=== PATIENT | female | born 1990 | race Two or more races ===

== ENCOUNTER 2024-02-04 21:09 | Inpatient (IN) | payer OTHER ==
[~2024-02-04] VITALS: Ht 170.2 cm; Wt 134.7 kg
[2024-02-04 22:01] LABS: Basophils # (auto) 0 10 ^3/uL (0-0.2); Eosinophils # (auto) 0.1 10 ^3/uL (0-0.8); Monocytes % (auto) 7.8 % (0.0-12.0); Nucleated Red Blood Cells % 0.1 %; White Blood Cell 12.7 10^3/uL (4.4-10.8)
[2024-02-04 22:03] LABS: Basophils % (auto) 0.2 % (0.0-2.0); Eosinophils % (auto) 0.5 % (0.0-7.0); Hematocrit 34.7 % (36.0-46.0); Hemoglobin 11.5 g/dL (12.2-16.2); Lymphocytes # (auto) 0.9 10 ^3/uL (0.4-5.4); Lymphocytes % (auto) 7.3 % (10.0-50.0); Mean Corpuscular Hemoglobin 25.9 pg (28.0-32.0); Mean Corpuscular Volume 78.6 fL (80.0-100.0); Neutrophils # (auto) 10.7 10 ^3/uL (1.6-8.6); Neutrophils % (auto) 84.2 % (37.0-80.0); Platelet Count (auto) 310 10^3/uL (140-450); Red Blood Cells 4.42 10^6/uL (4.0-5.20); Red Cell Distribution Width 14.1 % (11.8-14.3)
--- NOTE | 2024-02-04 22:03 | ED.PDOC ---
GI ASSESSMENT HPI Comments pt is diabetic. for the last few days, with nausea, vomiting, diarrhea, and lower abdominal pain. she also has not taken her diabetic medications or checked her BS Time Seen by MD: 21:52 Reviewed Notes: Nurses Notes, Making Machine Operator Notes, Medications, Allergies Allergies: Coded Allergies: NO KNOWN ALLERGIES (Unverified , 02/04/24) Information Source: Patient, Emergency Med Personnel Mode of Arrival: EMS Timing: Days Duration: Since onset Quality: Cramping Vomitus: Bilious Stool: Loose, Black Severity: Moderate Recent: None Recent Hx of: Diabetes Pain Location: Suprapubic Modifying Factors: Nothing Associated sign and symptoms: Nausea, Vomiting, Diarrhea, Abdominal Pain Past Medical History PAST MEDICAL HISTORY: DM Surgical History: Denies all surgeries MANAGER OF [employer] History: No 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[employer] History Family History Family History: Reviewed,noncontributory to illness, No family hx of Cancer, No family hx of DM, No family hx of Heart dayne, No family hx of HTN, No family hx ofKidney dayne, No family hx of Liver dayne, No family hx of Lung dayne, No family hx of Stroke Social History Smoker: Non-Smoker Alcohol: Denies ETOH Use Drugs: Denies Drug Use Constitutional: denies: chills, diaphoresis, fatigue, fever, malaise, sweats, weakness, others EENTM: denies: blurred vision, double vision, ear bleeding, ear discharge, ear drainage, ear pain, ear ringing, eye pain, eye redness, hearing loss, mouth pain, mouth swelling, nasal discharge, nose bleeding, nose congestion, nose pain, photophobia, tearing, throat pain, throat swelling, voice changes, others Respiratory: denies: cough, hemoptysis, orthopnea, SOB at rest, shortness of breath, SOB with excertion, stridor, wheezing, others Cardiovascular: denies: chest pain, dizzy spells, diaphoresis, Dyspnea on ex ertion, edema, irregular heart beat, left arm pain, lightheadedness, palpitations, PND, syncope, others Gastrointestinal: reports: abdominal pain (suprapubic); denies: abdomen distended, blood streaked bowels, constipated, diarrhea, dysphagia, difficulty swallowing, hematemesis, melena, nausea, poor appetite, poor fluid intake, rectal bleeding, rectal pain, vomiting, others Genitourinary: denies: abnormal vagina bleeding, burning, dyspareunia, dysuria, flank pain, frequency, hematuria, incontinence, pain, , vagina discharge, urgency, others Neurological: denies: dizziness, fainting, headache, left sided numbness, left sided weakness, numbness, paresthesia, pre-existing deficit, right sided numbness, right sided weakness, seizure, speech problems, tingling, tremors, weakness, others Musculoskeletal: denies: back pain, gout, joint pain, joint swelling, muscle pain, muscle stiffness, neck pain, others Integumetry: denies: bruises, change in color, change in hair/nails, dryness, laceration, lesions, lumps, rash, wounds, others Allergic/Immunocompromised: denies: Difficulty Healing, Frequent Infections, Hives, Itching, others Hematologic/Lymphatic: denies: anemia, blood clots, easy bleeding, easy bruising, swollen glands, others Endocrine: denies: excessive hunger, excessive sweating, excessive thirst, excessive urination, flushing, intolerance to cold, intolerance to heat, unexplained weight gain, unexplained weight loss, others Psychiatric: denies: anxiety, bipolar disorder, depression, hopeless, panic disorder, schizophrenia, sleepless, suicidal, others All Other Systems: Reviewed and Negative Physical Exam General Appearance: No Apparent Distress, Normal HEENT: Normal ENT Inspection, Pharynx Normal, TMs Normal Neck: Full Range of Motion, Non-Tender, Normal, Normal Inspection Respiratory: Chest Non-Tender, Lungs Clear, No Accessory Muscle Use, No Respiratory Distress, Normal Breath Sounds Cardiovascular: No Edema, No JVD, No Murmur, No Gallop, Normal Peripheral Pulses, Regular Rate/Rhythm Breast Exam: Deferred Gastrointestinal: No Organomegaly, No Pulsatile Mass, Normal Bowel Sounds, Soft, Tenderness, Other (guaiac positive of mildly red stool. no active bleed) Genitalia: Deferred Pelvic: Deferred Rectal: Deferred Extremities: No calf tenderness, Normal capillary refill, Normal inspection, Normal range of motion, Non-tender, No pedal edema Musculoskeletal : Apperance: Normal Neurologic: Alert, refuse laborer II-XII nml as Tested, No Motor Deficits, Normal Affect, Normal Mood, No Sensory Deficits Cerebellar Function: Normal Reflexes: Normal Skin: Dry, Normal Color, Rash (pt has petechial reash on the buttock and inner thighs), Warm Lymphatic: No Adenopathy Was a procedure done? Was a procedure done?: No GI differential Dx Differential Diagnosis: Appendicitis, Complete , Incomplete , Inevitable , Missed , Threatened , Abruptio placentae, Aortic dissection, Bowel Obstruction, Cholangitis, Cholecystitis, Constipation, Diverticular disease, Dysmenorrhea, Ectopic , Esophageal rupture, Gastritis/PUD, Gastroenteritis, GI hemorrhage, Hernia, Hepatitis, Inflammatory BD, Ischemic Bowel, Pancreatitis, PID, Urinary Obstruction, UTI, Urolithiasis, Dehydration, Diabetes/ DKA, Electrolyte Imbalance, Food Poisoning, , Bacterial, Parasitic, Viral, Hypovolemia, Impaction, Malnutrition, Renal Failure, Ischemic Bowel, Mass, Anemia, Esophageal Varicies, Stress Ulcer X-Ray, Labs, Meds, VS Vital Signs Date Time Temp Pulse Resp B/P (MAP) Pulse Ox O2 Delivery O2 Flow Rate FiO2 02/05/24 01:00 113 29 105/42 (63) 95 02/05/24 00:05 136/70 02/04/24 23:10 98.7 113 29 132/56 (81) 94 98.7 02/04/24 23:10 113 29 94 Room Air* 0 21 02/04/24 21:19 118 02/04/24 21:15 98.6 115 20 146/74 (98) 97 Lab Test 02/05/24 01:48 02/05/24 01:40 02/05/24 01:29 02/05/24 00:09 Range/Units Prothrombin Time 11.6 9.3-11.8 sec Prothrombin Time INR 1.10 0.9-1.15 Activated Partial Thromboplast Time 27.1 24.5-34.5 SEC Sodium Level 124 L 136-145 mmol/L Potassium Level 3.5 3.5-5.1 mmol/L Chloride Level 93 L 98-107 mmol/L Carbon Dioxide Level 24 20-31 mmol/L Anion Gap 7 5-15 Blood Urea Nitrogen 66 H 9-23 mg/dL Creatinine 2.63 H 0.550-1.02 mg/dL Glomerular Filtration Rate Calc 24 >90 mL/min BUN/Creatinine Ratio 25.1 H 10.0-20.0 Serum Glucose 449 *H 74-106 mg/dL Calcium Level 7.8 L 8.7-10.4 mg/dL POC Glucose 417 *H 449 *H 70-106 mg/dl Urine Color Light-orange Yellow Urine Clarity Ex.turbid Clear Urine pH 5.5 5.0-9.0 Urine Specific [place] 1.014 1.001-1.035 Urine Protein 2+ H Negative Urine Ketones Negative Negative Urine Blood 3+ H Negative /uL Urine Nitrite Negative Negative Urine Bilirubin Negative Negative Urine Urobilinogen Normal Negative mg/dL Urine Leukocyte Esterase 3+ Negative /uL Urine RBC 37 0 - 4 /hpf Urine WBC 400 0 - 5 /hpf Urine WBC Clumps Present None Seen /hpf Urine Squamous Epithelial Cells Few <5 /hpf Urine Bacteria Many H None Seen /hpf Urine Mucus Few None Seen Urine Glucose 2+ H Normal mg/dL Test 02/04/24 22:00 02/04/24 21:18 Range/Units Blood Gas Specimen Type Arterial Blood Gas Sample Site Left radial Blood Gas Patient Temperature 37.0 Arterial Blood Date Drawn [id number] Arterial Blood pH 7.462 H 7.350-7.450 Arterial Blood Partial Pressure CO2 36.2 32.0-45.0 mmHg Arterial Blood Partial Pressure O2 72.5 L 83.0-108.0 mmHg Arterial Blood HCO3 25.3 21.0-28.0 mmol/L Arterial Blood Oxygen Saturation 94.8 94.0-98.0 % Arterial Blood Base Excess 1.7 -2.0-3.0 mmol/L Arterial Blood Oxyhemoglobin 93.2 L 94.0-98.0 % Arterial Blood Carboxyhemoglobin 1.1 0.5-1.5 % Arterial Blood Methemoglobin 0.6 0.0-1.5 % Lakhwinder Test Yes Blood Gas Total Hemoglobin 12.70 12.0-16.0 g/dL Blood Gas Liter Flow 0.00 Blood Gas Modality Room air Blood Gas Spontaneous Rate 18 FiO2 % 21.0 Specimen Drawn By [facility] rt White Blood Count 12.7 H 4.4-10.8 10^3/uL Red Blood Count 4.42 4.0-5.20 10^6/uL Hemoglobin 11.5 L 12.2-16.2 g/dL Hematocrit 34.7 L 36.0-46.0 % Mean Corpuscular Volume 78.6 L 80.0-100.0 fL Mean Corpuscular Hemoglobin 25.9 L 28.0-32.0 pg Mean Corpuscular Hemoglobin Concent 33.0 32.0-36.0 g/dL Red Cell Distribution Width 14.1 11.8-14.3 % Platelet Count 310 140-450 10^3/uL Mean Platelet Volume 9.2 6.9-10.8 fL Neutrophils (%) (Auto) 84.2 H 37.0-80.0 % Lymphocytes (%) (Auto) 7.3 L 10.0-50.0 % Monocytes (%) (Auto) 7.8 0.0-12.0 % Eosinophils (%) (Auto) 0.5 0.0-7.0 % Basophils (%) (Auto) 0.2 0.0-2.0 % Neutrophils # (Auto) 10.7 H 1.6-8.6 10 ^3/uL Lymphocytes # (Auto) 0.9 0.4-5.4 10 ^3/uL Monocytes # (Auto) 1.0 0-1.3 10 ^3/uL Eosinophils # (Auto) 0.1 0-0.8 10 ^3/uL Basophils # (Auto) 0 0-0.2 10 ^3/uL Nucleated Red Blood Cells 0.1 % Sodium Level 122 L 136-145 mmol/L Potassium Level 3.3 L 3.5-5.1 mmol/L Chloride Level 90 L 98-107 mmol/L Carbon Dioxide Level 25 20-31 mmol/L Anion Gap 7 5-15 Blood Urea Nitrogen 65 H 9-23 mg/dL Creatinine 2.73 H 0.550-1.02 mg/dL Glomerular Filtration Rate Calc 23 >90 mL/min BUN/Creatinine Ratio 23.8 H 10.0-20.0 Serum Glucose 520 *H 74-106 mg/dL Calcium Level 8.0 L 8.7-10.4 mg/dL Total Bilirubin 0.7 0.2-1.0 mg/dL Aspartate Amino Transferase (AST) 9 L 13-40 U/L Alanine Aminotransferase (ALT) 10 7-40 U/L Alkaline Phosphatase 68 46-116 U/L Total Protein 7.4 5.7-8.2 g/dL Albumin 3.5 3.2-4.8 g/dL Lipase 100 H 12-53 U/L Beta HCG, Quantitative 0.2 L 1.5-4.2 mIU/mL Current Medications Medications (Trade) Dose Ordered Sig/Nely Route Start Time Stop Time Status Last Admin Ondansetron HCl (Zofran) 4 mg ONCE ONCE IV 02/04/24 22:00 02/04/24 22:01 DC 02/05/24 00:05 Fentanyl Citrate 25 mcg ONCE ONCE IV 02/04/24 22:00 02/04/24 22:01 DC 02/05/24 00:05 Sodium Chloride 1,000 ml @ 1,000 mls/hr Q1H ONCE IV 02/04/24 22:00 02/04/24 22:59 DC 02/05/24 00:04 Insulin Human Regular (InsuLIN R) 6 units ONCE ONCE IV 02/04/24 23:30 02/04/24 23:31 DC 02/05/24 00:12 Insulin Human Regular (InsuLIN R) 10 units ONCE ONCE IV 02/05/24 01:45 02/05/24 01:46 DC 02/05/24 01:53 Sodium Chloride 1,000 ml @ 125 mls/hr Q8H ONCE IV 02/05/24 01:45 02/05/24 09:44 02/05/24 01:53 Pantoprazole Sodium (Protonix) 40 mg ONCE ONCE IV 02/05/24 02:00 02/05/24 02:01 DC 02/05/24 02:05 Time of 1ST Reevaluation: 23:51 Reevaluation 1ST: Improved Time of 2ND Reevaluation: 00:45 Reevaluation 2ND: Improved Time of 3RD Reevaluation: 01:41 Reevaluation 3RD: Improved Patient Education/Counseling: Diagnosis, Treatment, Prognosis, Need For Follow Up Family Education/Counseling: No Family Present Additional Information pt is diabetic with 2 days of nausea, vomiting, diarrhea, however, she is not in DKA. she has poorly controlled hyperglycemic state and is dehydrated, with renal failure. pt also has evidence of uti, possibly with ascending progression by ct. she has enterocolitis causing the gi bleed, she also has evidence of cirrhosis, which may explain the petechial rash, and incidental finding of cholelithiasis. pt will be admitted for further treatments Departure 1 Departure Time of Disposition: 02:44 Impression: Primary Impression: GIB (gastrointestinal bleeding) Qualified Codes: K92.2 - Gastrointestinal hemorrhage, unspecified Additional Impressions: Renal failure Qualified Codes: N19 - Unspecified kidney failure Abdominal pain Qualified Codes: R10.30 - Lower abdominal pain, unspecified Petechial rash Pseudohyponatremia Hyperglycemia due to diabetes mellitus Dehydration Enterocolitis UTI (urinary tract infection) Qualified Codes: N39.0 - Urinary tract infection, site not specified; R31.9 - Hematuria, unspecified Cholelithiasis Qualified Codes: K80.20 - Calculus of gallbladder without cholecystitis without obstruction Cirrhosis Qualified Codes: K74.60 - Unspecified cirrhosis of liver Disposition: ADMITTED INPATIENT Admit to: Tele Condition: Serious Discharged With: Self Critical Care Note Critical Care Time?: Yes (>90min-critical care time only) Critical care comment: due to the possibility of DKA and deterioration of pt's condition, her care required my highest level of attention. i assessed her and formulated a care plan, communicated with medical personnel, and reviewed her results, reassessed her and provided updates. total time excludes any procedures Stability Stability form required: JOE Perera MD Feb 04, 2024 22:03
[2024-02-04 22:06] LABS: Base Excess 1.7 mmol/L (-2.0-3.0)
[2024-02-04 22:25] LABS: Alanine Aminotransferase 10 U/L (7-40); Albumin 3.5 g/dL (3.2-4.8); Alkaline Phosphatase 68 U/L (46-116); Anion Gap 7 (5-15); Aspartate Aminotransferase 9 U/L (13-40); BUN/Creatinine Ratio 23.8 (10.0-20.0); Bilirubin, Total 0.7 mg/dL (0.2-1.0); Blood Urea Nitrogen 65 mg/dL (9-23); Carbon Dioxide 25 mmol/L (20-31); Chloride 90 mmol/L (98-107); Lipase 100 U/L (12-53); Potassium 3.3 mmol/L (3.5-5.1); Sodium 122 mmol/L (136-145); Total Protein 7.4 g/dL (5.7-8.2)
[2024-02-04 22:32] LABS: Glucose 520 mg/dL (74-106)
[2024-02-04 23:10] VITALS: PULSE 113; RESP 29; O2SAT 94
--- NOTE | 2024-02-04 23:43 | ECG ---
[facility] Test Date: 2024-02-04 Test Time: 21:19:02 Pat Name: MOOSE PRIDE Department: ER Room: 0273T Gender: F Ampoule Inspector: PALOMO : 1990 Requested By: JOE MARIA Order Number: [id number] Reading MD: Jase Mercado Measurements Intervals [place] Rate: 118 P: 29 OK: 129 QRS: 22 QRSD: 94 T: 29 QT: 358 QTc: 502 Interpretive Statements Sinus tachycardia Left atrial enlargement Prolonged QT interval Electronically Signed On 02-09-2024 14:24:41 PDT by Jase Mercado Please click the below link to view image of tracing.
[2024-02-05] MEDS: SODIUM CHLORIDE 0.9% 1,000 ML IV ONE ×2 (00:04→01:53)
[2024-02-05] MEDS: ONDANSETRON HCL 4 MG/2 ML VIAL IV ONE (00:05)
[2024-02-05] MEDS: fentaNYL CITRATE 100 MCG/2 ML VL IV ONE (00:05)
[2024-02-05] MEDS: InsuLIN REG 1unit/0.01ml Soln (100units/ml) IV ONE ×2 (00:12→01:53)
[2024-02-05] MEDS: PANTOPRAZOLE 40 MG/10 ML VIAL INJ IV ONE (02:05)
[2024-02-05 02:14] LABS: Urine Bacteria MANY /hpf (None Seen); Urine Blood 3+ /uL (Negative); Urine Clarity Ex.Turbid (Clear); Urine Color Light-Orange (Yellow); Urine Mucus FEW (None Seen); Urine Protein, UAD 2+ (Negative); Urine Specific Gravity 1.014 (1.001-1.035); Urine Urobilinogen Normal (Negative); Urine WBC 400 /hpf (0 - 5); Urine WBC Clumps PRESENT /hpf (None Seen); Urine pH 5.5 (5.0-9.0)
[2024-02-05 02:14] LABS: Chloride 93 mmol/L (98-107); Potassium 3.5 mmol/L (3.5-5.1); Sodium 124 mmol/L (136-145)
[2024-02-05 02:15] LABS: Anion Gap 7 (5-15); Calcium 7.8 mg/dL (8.7-10.4); Carbon Dioxide 24 mmol/L (20-31)
[2024-02-05 02:20] LABS: BUN/Creatinine Ratio 25.1 (10.0-20.0); Blood Urea Nitrogen 66 mg/dL (9-23)
[2024-02-05 02:23] LABS: INR 1.1 (0.9-1.15); Partial Thromboplastin Time 27.1 SEC (24.5-34.5); Prothrombin Time 11.6 sec (9.3-11.8)
[2024-02-05 02:26] LABS: Glucose 449 mg/dL (74-106)
--- NOTE | 2024-02-05 02:32 | DVH ---
CLINICAL HISTORY: lower abdominal pain TECHNIQUE: CT of the abdomen and pelvis was performed without intravenous contrast. This exam was per formed according to our departmental dose optimization program. Up-to-date CT equipment and radiation dose reduction techniques are utilized as appropriate. [[employer] Exposure Report] WID: COMPARISON: None FINDINGS: Lower Thorax: Normal-sized heart. Lung bases are clear. Mild mitral annular calcifications. Trace pericardial fluid. Liver and Biliary system: There is mild hepatomegaly measuring 22 cm craniocaudal. There is nodular c ontour of the liver. No definite hepatic lesion. There is cholelithiasis. No biliary ductal dilatatio n. Spleen: Splenomegaly, mild. Adrenal Glands and Kidneys: Normal adrenal glands. There is mild to moderate right hydroureteronephro sis with right urothelial thickening. The right ureter tapers distally. No obstructing calculus is se en. No left hydronephrosis. No nephrolithiasis. Pancreas and Retroperitoneum: Normal pancreas. Mildly prominent right retroperitoneal lymph nodes pr obably reactive. Aorta and Major Vessels: Aortoiliac vessels are normal in caliber. Trace calcified plaque in the pro ximal femoral vessels. Bowel, Mesentery and Peritoneal space: Normal caliber small and large bowel. There circumferential wa ll thickening throughout the colon. Normal appendix. There is scattered wall thickening throughout s mall bowel loops. There is mild ascites. There is no free intraperitoneal air or drainable abscess. Pelvis: Circumferential bladder wall thickening. There are cystic lesions in the bilateral adnexa rj suring up to 4.4 cm on the right and 2.6 cm on the left on series 2, image 82. Mildly prominent pelvi c lymph nodes. Abdominal wall and Osseous Structures: There is mild body wall edema. No destructive osseous lesion. Grade 1 anterolisthesis at L5-S1 with bilateral L5 spondylolysis. Multilevel lower thoracic and lumba r spondylosis. IMPRESSION: 1. Diffuse wall thickening of the large bowel and scattered small bowel which could reflect infectiou s or inflammatory enterocolitis. 2. Circumferential wall thickening of the urinary bladder nonspecific though may reflect cystitis. C orrelate with urinalysis 3. [id number] right hydroureteronephrosis which tapers distally with mild right urothelial thic kening which could be related to ascending infection. This could also be evaluated with a urinalysis . 4. Hepatosplenomegaly. 5. Nodular contour of the liver which may be fibrosis or cirrhosis. Correlate with liver enzymes and clinical history. 6. Cholelithiasis.
[2024-02-05] MEDS: cefTRIAXone 1GM/50ML D5W 50 ML IV ONE (02:58)
[2024-02-05] MEDS: metroNIDAZOLE 500MG/100ML 100 ML IV ONE (03:12)
[2024-02-05] MEDS: SODIUM CHLORIDE 0.9% 1,000 ML IV SCH ×2 (05:30→19:04)
[2024-02-05] MEDS ORDERED: DEXTROSE (50%) 50ML SYRG IV PRN (05:30)
[2024-02-05] MEDS ORDERED: DOCUSATE SOD 100 MG CAP PO PRN (05:30)
--- NOTE | 2024-02-05 06:19 | DVHHP2 ---
History of Present Illness Reason for Visit: Acute abdominal pain History of Present Illness The patient is a 33-year-old female with past medical history of diabetes mellitus who presented to [facility] ED with complaint of abdominal pain. Patient reports symptoms progressively get worse with severe lower abdomin al pain, associated diarrhea, nausea, vomiting, getting worse that prompted this visit. Patient was seen and evaluated in the ED, laboratory data shows WBC 12.7, hemoglobin 11.5, hematocrit 34.7, platelets 310, sodium 124, potassium 3.5, BUN 66, creatinine 2.63, glucose 449, calcium 7.8, AST nine, ALT 10, lipase 100, blood pressure 132/56, heart rate 63, temperature 98.9 F, O2 saturation 95% on room air. Urinalysis positive for urinary tract infection. Abdomen/pelvis CT revealing diffuse wall thickening of the large bowel and scattered small bowel which could reflect infectious or inflammatory enterocolitis, hepatomegaly. Patient was started on IV antibiotic regimen Flagyl, please see medication orders section in the computer. On my assessment, patient denies chest pain, no headache, no dizziness, no diaphoresis, no shortness of breaths, no abdominal pain at this moment, no diarrhea, no nausea, no vomiting, no fever, no chills. Patient was admitted for further evaluation and medical management. Past Medical History DM Past Surgical History Denies all surgeries Family History Reviewed, noncontributory to the management of this case. Past Social History The patient lives at home, denies smoking, alcohol or illicit drugs abuse. Review of Systems Constitutional: No: Fever, Chills, Sweats, Weakness, Malaise, Other Eyes: No: Pain, Vision change, Conjunctivae inflammation, Eyelid inflammation, Other, Redness ENT: No: Ear pain, Ear discharge, Nose pain, Nose discharge, Nose congestion, Mouth pain, Mouth swelling, Throat pain, Throat swelling, Other Respiratory: No: Cough, Dry, Shortness of breath, SOB with excertion, Wheezing, Hemoptysis, Pleuritic Pain, Sputum, Wheezing, Other Cardiovascular: No: Chest Pain, Palpitations, Orthopnea, Paroxysmal Noc. Dyspnea, Edema, Lt Headedness, Other Gastrointestinal: Abdominal Pain; No: Nausea, Vomiting, Diarrhea, Constipation, Melena, Hematochezia, Other Genitourinary: No Dysuria, No Frequency, No Incontinence, No Hematuria, No Retention, No Other Musculoskeletal: No: other, neck pain, shoulder pain, arm pain, back pain, hand pain, leg pain, foot pain Skin: Other (Petechial rash); No: Rash, Lesions, Jaundice, Bruising Neurological: No: Weakness, Numbness, Incoordination, Change in speech, Confusion, Seizures, Other Allergies: Coded Allergies: NO KNOWN ALLERGIES (Unverified , 02/04/24) Medications Current Medications Medications Dose Ordered Sig/Nely Route Start Time Stop Time Status Last Admin Dose Admin Ceftriaxone Sodium 50 ml @ 100 mls/hr DAILY@09 IV 02/06/24 09:00 Metronidazole 100 ml @ 100 mls/hr Q8HR IV 02/05/24 14:00 Pantoprazole Sodium 40 mg DAILY IV 02/05/24 10:00 Diagnostic Test (Pha) 1 strip IQ4HR 02/05/24 08:00 Insulin Human Regular IQ4HR SC 02/05/24 08:00 Dextrose 50 ml UD PRN IV 02/05/24 05:30 Sodium Chloride 1,000 ml @ 120 mls/hr Q8H20M IV 02/05/24 05:30 02/05/24 05:30 120 MLS/HR Acetaminophen/ Hydrocodone Bitart 1 tab Q4HP PRN PO 02/05/24 05:30 Ondansetron HCl 4 mg Q4HP PRN IV 02/05/24 05:30 Docusate Sodium 100 mg BIDPRN PRN PO 02/05/24 05:30 Acetaminophen 650 mg Q6HP PRN PO 02/05/24 05:30 Morphine Sulfate 2 mg Q4HPRN PRN IV 02/05/24 05:30 Exam Vital Signs Vital Signs Date Time Temp Pulse Resp B/P (MAP) Pulse Ox O2 Delivery O2 Flow Rate FiO2 02/05/24 05:00 110 24 136/61 (86) 97 02/04/24 23:10 98.7 98.7 02/04/24 23:10 Room Air* 0 21 General Appearance: Alert, Oriented X3, Cooperative, No acute distress HEENT: Atraumatic, PERRLA, EOMI, Mucous membr. moist/pink Respiratory: Clear to auscultation, Normal air movement Cardiovascular: Regular rate, Normal S1, Normal S2, No murmurs Abdominal: Normal bowel sounds, Soft, No tenderness, No hepatospenomegaly, No masses Extremities: No clubbing, No cyanosis, No edema, Normal pulses, No tenderness/swelling Skin: No rashes, No breakdown, No significant lesion Neuro: Normal speech, Normal tone, Sensation intact, Cranial nerves 3-12 NL, Reflexes 2+, Other (Generalized weakness) Psych/Mental Status: Mental status NL, Mood NL Labs/Xrays Labs Test 02/05/24 05:56 02/05/24 03:39 02/05/24 01:48 02/05/24 01:29 Range/Units POC Glucose 365 H 70-106 mg/dl Prothrombin Time 11.6 9.3-11.8 sec Prothrombin Time INR 1.10 0.9-1.15 Activated Partial Thromboplast Time 27.1 24.5-34.5 SEC Urine Color Light-orange Yellow Urine Clarity Ex.turbid Clear Urine pH 5.5 5.0-9.0 Urine Specific [place] 1.014 1.001-1.035 Urine Protein 2+ H Negative Urine Ketones Negative Negative Urine Blood 3+ H Negative /uL Urine Nitrite Negative Negative Urine Bilirubin Negative Negative Urine Urobilinogen Normal Negative mg/dL Urine Leukocyte Esterase 3+ Negative /uL Urine RBC 37 0 - 4 /hpf Urine WBC 400 0 - 5 /hpf Urine WBC Clumps Present None Seen /hpf Urine Squamous Epithelial Cells Few <5 /hpf Urine Bacteria Many H None Seen /hpf Urine Mucus Few None Seen Urine Glucose 2+ H Normal mg/dL Test 02/04/24 22:00 02/04/24 21:18 Range/Units Blood Gas Specimen Type Arterial Blood Gas Sample Site Left radial Blood Gas Patient Temperature 37.0 Arterial Blood Date Drawn [id number] Arterial Blood pH 7.462 H 7.350-7.450 Arterial Blood Partial Pressure CO2 36.2 32.0-45.0 mmHg Arterial Blood Partial Pressure O2 72.5 L 83.0-108.0 mmHg Arterial Blood HCO3 25.3 21.0-28.0 mmol/L Arterial Blood Oxygen Saturation 94.8 94.0-98.0 % Arterial Blood Base Excess 1.7 -2.0-3.0 mmol/L Arterial Blood Oxyhemoglobin 93.2 L 94.0-98.0 % Arterial Blood Carboxyhemoglobin 1.1 0.5-1.5 % Arterial Blood Methemoglobin 0.6 0.0-1.5 % Lakhwinder Test Yes Blood Gas Total Hemoglobin 12.70 12.0-16.0 g/dL Blood Gas Liter Flow 0.00 Blood Gas Modality Room air Blood Gas Spontaneous Rate 18 FiO2 % 21.0 Specimen [facility] rt Eosinophils (%) (Auto) 0.5 0.0-7.0 % Eosinophils # (Auto) 0.1 0-0.8 10 ^3/uL Basophils # (Auto) 0 0-0.2 10 ^3/uL Nucleated Red Blood Cells 0.1 % Lipase 100 H 12-53 U/L Beta HCG, Quantitative 0.2 L 1.5-4.2 mIU/mL PATIENT: MOOSE PRIDE ACCT: [id number] UNIT: [id number] : 1990 LOC: ER ROOM / BED: / AGE / SEX: 33 / F ADM STATUS: REG ER SERVICE 51 ORDERING PHYSICIAN: JOE MARIA MD PROCEDURE(s): ABPL - CT AB PEL WO CON-NO ORAL OR IV REASON: lower abdominal pain ORDER NUMBER(s): [id number], ACCESSION NUMBER(s): [id number] CLINICAL HISTORY: lower abdominal pain TECHNIQUE: CT of the abdomen and pelvis was performed without intravenous contrast. This exam was performed according to our departmental dose optimization program. Up-to-date CT equipment and radiation dose reduction techniques are utilized as appropriate. [[employer] Exposure Report] WID: COMPARISON: None FINDINGS: Lower Thorax: Normal-sized heart. Lung bases are clear. Mild mitral annular calcifications. Trace pericardial fluid. Liver and Biliary system: There is mild hepatomegaly measuring 22 cm craniocaudal. There is nodular contour of the liver. No definite hepatic lesion. There is cholelithiasis. No biliary ductal dilatation. Spleen: Splenomegaly, mild. Adrenal Glands and Kidneys: Normal adrenal glands. There is mild to moderate right hydroureteronephrosis with right urothelial thickening. The right ureter tapers distally. No obstructing calculus is seen. No left hydronephrosis. No nephrolithiasis. Pancreas and Retroperitoneum: Normal pancreas. Mildly prominent right retroperitoneal lymph nodes probably reactive. Aorta and Major Vessels: Aortoiliac vessels are normal in caliber. Trace calcified plaque in the proximal femoral vessels. Bowel, Mesentery and Peritoneal space: Normal caliber small and large bowel. There circumferential wall thickening throughout the colon. Normal appendix. There is scattered wall thickening throughout small bowel loops. There is mild ascites. There is no free intraperitoneal air or drainable abscess. Pelvis: Circumferential bladder wall thickening. There are cystic lesions in the bilateral adnexa measuring up to 4.4 cm on the right and 2.6 cm on the left on series 2, image 82. Mildly prominent pelvic lymph nodes. Abdominal wall and Osseous Structures: There is mild body wall edema. No destructive osseous lesion. Grade 1 anterolisthesis at L5-S1 with bilateral L5 spondylolysis. Multilevel lower thoracic and lumbar spondylosis. IMPRESSION: 1. Diffuse wall thickening of the large bowel and scattered small bowel which could reflect infectious or inflammatory enterocolitis. 2. Circumferential wall thickening of the urinary bladder nonspecific though may reflect cystitis. Correlate with urinalysis 3. [id number] right hydroureteronephrosis which tapers distally with mild right urothelial thickening which could be related to ascending infection. This could also be evaluated with a urinalysis. 4. Hepatosplenomegaly. 5. Nodular contour of the liver which may be fibrosis or cirrhosis. Correlate with liver enzymes and clinical history. 6. Cholelithiasis. Assessment/Plan Assessment/Plan GIB (gastrointestinal bleeding) Gastrointestinal hemorrhage, unspecified Unspecified kidney failure Acute abdominal pain Lower abdominal pain, unspecified Petechial rash Pseudohyponatremia Hyperglycemia due to diabetes mellitus Dehydration Leukocytosis, unspecified Enterocolitis UTI (urinary tract infection) Cholelithiasis Calculus of gallbladder without cholecystitis without obstruction Unspecified cirrhosis of liver Plan 1. Admit to telemetry unit 2. Breathing treatment 3. Pain control management 4. IV antibiotic management 5. Management of fluids and electrolytes 6. Consultation for GI/hospitalist 7. Diagnostic test abdomen/pelvis CT 8. DVT prophylaxis-on SCDs 9. Repeat labs CBC, CMP in a.m. 10. Home medication reviewed and reconciled 11. Continue with current medical management 12. Treatment plan discussed with patient and RN. Patient verbalized understanding. Plan discussed with: Patient, Other (RN) My Orders Orders - PILLO AGGARWAL DNP Procedure Category Date Status Time Complete Blood Count LAB 02/05/24 In Process 05:17 Comprehensive LAB 02/05/24 In Process Metabolic Panel 05:17 Metronidazole PHA 02/05/24 In Process 500mg/100ml (Flagyl 14:00 Pantoprazole PHA 02/05/24 In Process (Protonix) 10:00 Glucose Blood PHA 02/05/24 In Process (Accu-Chek Comfort 08:00 Insulin R (Human) PHA 02/05/24 In Process (Insulin R) 08:00 Dextrose 50% Syringe PHA 02/05/24 In Process 05:30 Allergies KALYAN 02/05/24 In Process 05:17 Code Status CODE 02/05/24 Transmitted 05:17 Sodium Chloride 0.9% PHA 02/05/24 In Process 05:30 Oxygen Per Hour RT 02/05/24 Transmitted 05:17 Hydrocodone-Acet PHA 02/05/24 In Process 5/325mg Tab ([place] 05:30 Ondansetron Hcl PHA 02/05/24 In Process (Zofran) 05:30 Docusate Sodium PHA 02/05/24 In Process Capsule (Colace 05:30 Complete Blood Count LAB 02/06/24 Verified 04:00 Comprehensive LAB 02/06/24 Verified Metabolic Panel 04:00 Condition: Serious KALYAN 02/05/24 In Process 05:17 Acetaminophen Tablet PHA 02/05/24 In Process (Tylenol Tablet) 05:30 Clear Liq Diet DIET 02/05/24 Transmitted Breakfast Bedrest With Bathroom KALYAN 02/05/24 In Process Privileg 05:17 Morphine Sulfate PHA 02/05/24 In Process Injection 05:30 Sequential KALYAN 02/05/24 In Process Compression Device Ceftriaxone 1gm/50ml PHA 02/06/24 In Process D5w (Rocephin) 09:00 *[facility] CONS 02/05/24 Transmitted -[place] 05:38 Problem List: (1) Acute abdominal pain (2) Leukocytosis, unspecified (3) Liver cirrhosis (4) Petechial rash (5) Pseudohyponatremia (6) Hyperglycemia due to diabetes mellitus (7) UTI (urinary tract infection) (8) Cholelithiasis (9) Gastrointestinal hemorrhage, unspecified (10) Enterocolitis (11) Lower abdominal pain, unspecified (12) Dehydration (13) Unspecified kidney failure (14) GIB (gastrointestinal bleeding) (15) Calculus of gallbladder without cholecystitis without obstruction (16) Unspecified cirrhosis of liver Date of Service: Feb 05, 2024 Billing Provider: PILLO AGGARWAL DNP Common Visit Codes: [id number] INP/OBS CARE (HIGH) PILLO AGGARWAL DNP Feb 05, 2024 06:19
[2024-02-05 06:22] LABS: Basophils # (auto) 0 10 ^3/uL (0-0.2); Basophils % (auto) 0.3 % (0.0-2.0); Eosinophils # (auto) 0 10 ^3/uL (0-0.8); Eosinophils % (auto) 0.4 % (0.0-7.0); Hematocrit 31.1 % (36.0-46.0); Hemoglobin 10.4 g/dL (12.2-16.2); Lymphocytes # (auto) 0.8 10 ^3/uL (0.4-5.4); Lymphocytes % (auto) 7.2 % (10.0-50.0); Mean Corpuscular Hgb Conc. 33.3 g/dL (32.0-36.0); Mean Corpuscular Volume 78.1 fL (80.0-100.0); Monocytes # (auto) 0.9 10 ^3/uL (0-1.3); Monocytes % (auto) 7.4 % (0.0-12.0); Neutrophils % (auto) 84.7 % (37.0-80.0); Platelet Count (auto) 288 10^3/uL (140-450); Red Blood Cells 3.99 10^6/uL (4.0-5.20); Red Cell Distribution Width 14.2 % (11.8-14.3); White Blood Cell 11.8 10^3/uL (4.4-10.8)
[2024-02-05] MEDS ORDERED: NITROGLYCERIN 0.4 MG SL TAB SL PRN (06:30)
[2024-02-05] MEDS ORDERED: MORPHINE SULFATE INJ 2 MG/ml SYRG IV PRN (06:30)
[2024-02-05 06:35] LABS: Alkaline Phosphatase 58 U/L (46-116); Anion Gap 12 (5-15); Aspartate Aminotransferase < 8 U/L (13-40); BUN/Creatinine Ratio 27.4 (10.0-20.0); Bilirubin, Total 0.6 mg/dL (0.2-1.0); Blood Urea Nitrogen 69 mg/dL (9-23); Calcium 7.6 mg/dL (8.7-10.4); Carbon Dioxide 22 mmol/L (20-31); Chloride 92 mmol/L (98-107); Potassium 3.1 mmol/L (3.5-5.1); Sodium 126 mmol/L (136-145); Total Protein 6.5 g/dL (5.7-8.2)
[2024-02-05 06:42] LABS: Alanine Aminotransferase < 9 U/L (7-40)
[2024-02-05 06:44] LABS: Glucose 450 mg/dL (74-106)
[2024-02-05] MEDS: CALCIUM GLUC 1,000mg/50ml-NS 50 ML IV ONE (06:44)
[2024-02-05] MEDS: ACCU-CHEK COMFORT CURVE STRIP VI SCH (07:00)
[2024-02-05] MEDS: InsuLIN REG 1unit/0.01ml Soln (100units/ml) SC SCH (07:01)
[2024-02-05] MEDS ORDERED: InsuLIN REG 1unit/0.01ml Soln (100units/ml) SC SCH (08:00)
[2024-02-05] MEDS: PANTOPRAZOLE 40 MG/10 ML VIAL INJ IV SCH (10:26)
[2024-02-05] MEDS: metroNIDAZOLE 500MG/100ML 100 ML IV SCH (14:32)
--- NOTE | 2024-02-05 17:05 | DVHINCON2 ---
Date of service: Feb 05, 2024 Referring Physician Hospitalist Reason for Consultation Acute kidney injury History of Present Illness 33-year-old morbidly obese female with a past medical history of diabetes. Patient is a poor historian but presents to the hospital complaining of abdominal pain. Nephrology consulted due to elevated creatinine level. I have no previous labs for comparison. She has imaging showing urinary tract infection as well as mild to moderate hydronephrosis and elevated lipase. Past Medical History dm2 Allergies: Coded Allergies: NO KNOWN ALLERGIES (Unverified , 02/04/24) Current Medications Current Medications Medications (Trade) Dose Ordered Sig/Nely Route PRN Reason Start Time Stop Time Status Last Admin Ceftriaxone Sodium 50 ml @ 100 mls/hr DAILY@09 IV 02/06/24 09:00 Metronidazole 100 ml @ 100 mls/hr Q8HR IV 02/05/24 14:00 02/05/24 14:32 Pantoprazole Sodium (Protonix) 40 mg DAILY IV 02/05/24 10:00 02/05/24 10:26 Diagnostic Test (Pha) (Accu-Chek Comfort Curve T) 1 strip IQ4HR 02/05/24 08:00 02/05/24 16:37 Insulin Human Regular (InsuLIN R) IQ4HR SC 02/05/24 08:00 02/05/24 06:53 DC Dextrose 50 ml UD PRN IV Blood Sugar LESS THAN 60 02/05/24 05:30 Sodium Chloride 1,000 ml @ 120 mls/hr Q8H20M IV 02/05/24 05:30 02/05/24 14:32 Acetaminophen/ Hydrocodone Bitart ([place] 5/325MG Tab) 1 tab Q4HP PRN PO MODERATE PAIN (4-6 PAIN SCALE) 02/05/24 05:30 Ondansetron HCl (Zofran) 4 mg Q4HP PRN IV NAUSEA / VOMITING 02/05/24 05:30 Docusate Sodium (Colace Capsule) 100 mg BIDPRN PRN PO FOR CONSTIPATION 02/05/24 05:30 Acetaminophen (Tylenol Tablet) 650 mg Q6HP PRN PO PAIN SCALE 1-3 OR TEMP>100.4 02/05/24 05:30 Morphine Sulfate 2 mg Q4HPRN PRN IV SEVERE PAIN (7-10 PAIN SCALE) 02/05/24 05:30 Nitroglycerin (Ntrostat Sublingual) 0.4 mg Q5MINP PRN SL FOR CHEST PAIN 02/05/24 06:30 Morphine Sulfate 2 mg Q30M PRN IV FOR CHEST PAIN 02/05/24 06:30 Insulin Human Regular (InsuLIN R) IQ4HR SC 02/05/24 07:00 02/05/24 16:39 Review of Systems abdomen pain H&P Exam Vital Signs/I&O Vital Sign Date Time Temp Pulse Resp B/P (MAP) Pulse Ox O2 Delivery O2 Flow Rate FiO2 02/05/24 16:00 100 22 121/47 (71) 100 02/05/24 08:00 97.8 97.8 02/05/24 07:30 Room Air* 0 21 Intake and Output 02/04/24 02/05/24 19:00 07:00 Intake Total 1695 ml Balance 1695 ml Intake IV Total 1695 ml Physical Exam Flushed appearing obese female Alert poor historian No murmur Abdomen is soft No pitting edema Multiple areas of purple petechiae Labs/Diagnostic Data Labs/Diagnostic Data Laboratory Tests Test 02/05/24 11:52 02/05/24 06:57 02/05/24 05:56 02/05/24 03:39 Range/Units POC Glucose 362 H 433 *H 365 H 70-106 mg/dl White Blood Count 11.8 H 4.4-10.8 10^3/uL Red Blood Count 3.99 L 4.0-5.20 10^6/uL Hemoglobin 10.4 L 12.2-16.2 g/dL Hematocrit 31.1 #L 36.0-46.0 % Mean Corpuscular Volume 78.1 L 80.0-100.0 fL Mean Corpuscular Hemoglobin 26.0 L 28.0-32.0 pg Mean Corpuscular Hemoglobin Concent 33.3 32.0-36.0 g/dL Red Cell Distribution Width 14.2 11.8-14.3 % Platelet Count 288 140-450 10^3/uL Mean Platelet Volume 9.1 6.9-10.8 fL Neutrophils (%) (Auto) 84.7 H 37.0-80.0 % Lymphocytes (%) (Auto) 7.2 L 10.0-50.0 % Monocytes (%) (Auto) 7.4 0.0-12.0 % Eosinophils (%) (Auto) 0.4 0.0-7.0 % Basophils (%) (Auto) 0.3 0.0-2.0 % Neutrophils # (Auto) 10.0 H 1.6-8.6 10 ^3/uL Lymphocytes # (Auto) 0.8 0.4-5.4 10 ^3/uL Monocytes # (Auto) 0.9 0-1.3 10 ^3/uL Eosinophils # (Auto) 0 0-0.8 10 ^3/uL Basophils # (Auto) 0 0-0.2 10 ^3/uL Nucleated Red Blood Cells 0.0 % Sodium Level 126 L 136-145 mmol/L Potassium Level 3.1 L 3.5-5.1 mmol/L Chloride Level 92 L 98-107 mmol/L Carbon Dioxide Level 22 20-31 mmol/L Anion Gap 12 5-15 Blood Urea Nitrogen 69 H 9-23 mg/dL Creatinine 2.52 H 0.550-1.02 mg/dL Glomerular Filtration Rate Calc 25 >90 mL/min BUN/Creatinine Ratio 27.4 H 10.0-20.0 Serum Glucose 450 *H 74-106 mg/dL Calcium Level 7.6 L 8.7-10.4 mg/dL Total Bilirubin 0.6 0.2-1.0 mg/dL Aspartate Amino Transferase (AST) < 8 L 13-40 U/L Alanine Aminotransferase (ALT) < 9 7-40 U/L Alkaline Phosphatase 58 46-116 U/L Total Protein 6.5 5.7-8.2 g/dL Albumin 3.0 L 3.2-4.8 g/dL Test 02/05/24 01:48 02/05/24 01:40 02/05/24 01:29 02/05/24 00:09 Range/Units Prothrombin Time 11.6 9.3-11.8 sec Prothrombin Time INR 1.10 0.9-1.15 Activated Partial Thromboplast Time 27.1 24.5-34.5 SEC Sodium Level 124 L 136-145 mmol/L Potassium Level 3.5 3.5-5.1 mmol/L Chloride Level 93 L 98-107 mmol/L Carbon Dioxide Level 24 20-31 mmol/L Anion Gap 7 5-15 Blood Urea Nitrogen 66 H 9-23 mg/dL Creatinine 2.63 H 0.550-1.02 mg/dL Glomerular Filtration Rate Calc 24 >90 mL/min BUN/Creatinine Ratio 25.1 H 10.0-20.0 Serum Glucose 449 *H 74-106 mg/dL Calcium Level 7.8 L 8.7-10.4 mg/dL POC Glucose 417 *H 449 *H 70-106 mg/dl Urine Color Light-orange Yellow Urine Clarity Ex.turbid Clear Urine pH 5.5 5.0-9.0 Urine Specific [place] 1.014 1.001-1.035 Urine Protein 2+ H Negative Urine Ketones Negative Negative Urine Blood 3+ H Negative /uL Urine Nitrite Negative Negative Urine Bilirubin Negative Negative Urine Urobilinogen Normal Negative mg/dL Urine Leukocyte Esterase 3+ Negative /uL Urine RBC 37 0 - 4 /hpf Urine WBC 400 0 - 5 /hpf Urine WBC Clumps Present None Seen /hpf Urine Squamous Epithelial Cells Few <5 /hpf Urine Bacteria Many H None Seen /hpf Urine Mucus Few None Seen Urine Glucose 2+ H Normal mg/dL Test 02/04/24 22:00 02/04/24 21:18 Range/Units Blood Gas Specimen Type Arterial Blood Gas Sample Site Left radial Blood Gas Patient Temperature 37.0 Arterial Blood Date Drawn [id number] Arterial Blood pH 7.462 H 7.350-7.450 Arterial Blood Partial Pressure CO2 36.2 32.0-45.0 mmHg Arterial Blood Partial Pressure O2 72.5 L 83.0-108.0 mmHg Arterial Blood HCO3 25.3 21.0-28.0 mmol/L Arterial Blood Oxygen Saturation 94.8 94.0-98.0 % Arterial Blood Base Excess 1.7 -2.0-3.0 mmol/L Arterial Blood Oxyhemoglobin 93.2 L 94.0-98.0 % Arterial Blood Carboxyhemoglobin 1.1 0.5-1.5 % Arterial Blood Methemoglobin 0.6 0.0-1.5 % Lakhwinder Test Yes Blood Gas Total Hemoglobin 12.70 12.0-16.0 g/dL Blood Gas Liter Flow 0.00 Blood Gas Modality Room air Blood Gas Spontaneous Rate 18 FiO2 % 21.0 Specimen Drawn By [email or web address] rt White Blood Count 12.7 H 4.4-10.8 10^3/uL Red Blood Count 4.42 4.0-5.20 10^6/uL Hemoglobin 11.5 L 12.2-16.2 g/dL Hematocrit 34.7 L 36.0-46.0 % Mean Corpuscular Volume 78.6 L 80.0-100.0 fL Mean Corpuscular Hemoglobin 25.9 L 28.0-32.0 pg Mean Corpuscular Hemoglobin Concent 33.0 32.0-36.0 g/dL Red Cell Distribution Width 14.1 11.8-14.3 % Platelet Count 310 140-450 10^3/uL Mean Platelet Volume 9.2 6.9-10.8 fL Neutrophils (%) (Auto) 84.2 H 37.0-80.0 % Lymphocytes (%) (Auto) 7.3 L 10.0-50.0 % Monocytes (%) (Auto) 7.8 0.0-12.0 % Eosinophils (%) (Auto) 0.5 0.0-7.0 % Basophils (%) (Auto) 0.2 0.0-2.0 % Neutrophils # (Auto) 10.7 H 1.6-8.6 10 ^3/uL Lymphocytes # (Auto) 0.9 0.4-5.4 10 ^3/uL Monocytes # (Auto) 1.0 0-1.3 10 ^3/uL Eosinophils # (Auto) 0.1 0-0.8 10 ^3/uL Basophils # (Auto) 0 0-0.2 10 ^3/uL Nucleated Red Blood Cells 0.1 % Sodium Level 122 L 136-145 mmol/L Potassium Level 3.3 L 3.5-5.1 mmol/L Chloride Level 90 L 98-107 mmol/L Carbon Dioxide Level 25 20-31 mmol/L Anion Gap 7 5-15 Blood Urea Nitrogen 65 H 9-23 mg/dL Creatinine 2.73 H 0.550-1.02 mg/dL Glomerular Filtration Rate Calc 23 >90 mL/min BUN/Creatinine Ratio 23.8 H 10.0-20.0 Serum Glucose 520 *H 74-106 mg/dL Calcium Level 8.0 L 8.7-10.4 mg/dL Total Bilirubin 0.7 0.2-1.0 mg/dL Aspartate Amino Transferase (AST) 9 L 13-40 U/L Alanine Aminotransferase (ALT) 10 7-40 U/L Alkaline Phosphatase 68 46-116 U/L Total Protein 7.4 5.7-8.2 g/dL Albumin 3.5 3.2-4.8 g/dL Lipase 100 H 12-53 U/L Beta HCG, Quantitative 0.2 L 1.5-4.2 mIU/mL Assessment Acute kidney injury likely prerenal in setting of volume depletion Chronic kidney disease unspecified baseline is unknown but likely has significant kidney disease Hyponatremia Hypokalemia Nodular liver Pancreatitis Colitis Diabetes Urinary tract infection with sepsis and hydronephrosis of the kidney concerning for infection associated pyelonephritis Recommend resuming IV fluid hydration 75 cc/hour Obtain urinary drug screen; patient was given opioids in the ER but screen would be to rule out other possible drugs Strict Is&Os Olson catheter placement and I recommend repeat ultrasound in a few days Replace electrolytes IV antibiotics as well as urinary culture Obtain vitamin-D level, iron panel, phosphorus level, and hemoglobin A1c Multiple purple petechiae over the bilateral lower extremity as well as over the thighs and lower feet. Recommend obtaining serologies and urine protein creatinine ratio Plan discussed with: Patient GREGORIA MALDONADO MD Feb 05, 2024 17:05
[2024-02-05 18:08] VITALS: BP 122/78; PULSE 84; RESP 18; TEMP 98.6; O2SAT 96
[2024-02-05 19:52] LABS: Amphetamine Screen, Urine Neg (NEGATIVE); Barbiturate Scree,Urine Neg (NEGATIVE); Benzodiazephine Screen, Urine Neg (NEGATIVE); Cocaine Screen, Urine Neg (NEGATIVE); Opiate Scree,Urine Neg (NEGATIVE)
[2024-02-05 19:53] LABS: Cannabinoid Screen, Urine Neg (NEGATIVE); Phencyclidine Screen, Urine Neg (NEGATIVE)
[2024-02-05] MEDS: MORPHINE SULFATE INJ 2 MG/ml SYRG IV PRN (20:40)
[2024-02-05 21:00] VITALS: BP 120/47; PULSE 97; RESP 18; TEMP 98.1; O2SAT 98
[2024-02-06] VITALS (7 sets, daily range): BP systolic 108–143; BP diastolic 51–74; PULSE 85–121; RESP 17–20; TEMP 97.6–98.8; O2SAT 97–99
[2024-02-06 05:49] LABS: Basophils # (auto) 0 10 ^3/uL (0-0.2); Basophils % (auto) 0.2 % (0.0-2.0); Eosinophils # (auto) 0.1 10 ^3/uL (0-0.8); Eosinophils % (auto) 0.8 % (0.0-7.0); Hematocrit 32.2 % (36.0-46.0); Hemoglobin 10.7 g/dL (12.2-16.2); Lymphocytes # (auto) 0.8 10 ^3/uL (0.4-5.4); Lymphocytes % (auto) 8.4 % (10.0-50.0); Mean Corpuscular Hemoglobin 26.3 pg (28.0-32.0); Mean Corpuscular Hgb Conc. 33.3 g/dL (32.0-36.0); Mean Corpuscular Volume 78.9 fL (80.0-100.0); Monocytes # (auto) 0.7 10 ^3/uL (0-1.3); Monocytes % (auto) 6.7 % (0.0-12.0); Neutrophils # (auto) 8.5 10 ^3/uL (1.6-8.6); Neutrophils % (auto) 83.9 % (37.0-80.0); Nucleated Red Blood Cells % 0.1 %; Platelet Count (auto) 283 10^3/uL (140-450); Red Blood Cells 4.08 10^6/uL (4.0-5.20); Red Cell Distribution Width 14.2 % (11.8-14.3); White Blood Cell 10.1 10^3/uL (4.4-10.8)
[2024-02-06 05:51] LABS: Albumin 3.1 g/dL (3.2-4.8); Alkaline Phosphatase 57 U/L (46-116); Anion Gap 5 (5-15); Aspartate Aminotransferase 9 U/L (13-40); BUN/Creatinine Ratio 23.9 (10.0-20.0); Calcium 8.4 mg/dL (8.7-10.4); Carbon Dioxide 28 mmol/L (20-31); Chloride 101 mmol/L (98-107); Glucose 241 mg/dL (74-106); Magnesium 2.5 mg/dL (1.6-2.6); Phosphorus 2.5 mg/dL (2.4-5.1); Potassium 3.3 mmol/L (3.5-5.1)
[2024-02-06 05:52] LABS: Bilirubin, Total 0.5 mg/dL (0.2-1.0); Total Protein 6.9 g/dL (5.7-8.2)
[2024-02-06 05:55] LABS: % Iron Saturation 8.3 % (15-50)
[2024-02-06 06:17] LABS: Alanine Aminotransferase < 9 U/L (7-40); Blood Urea Nitrogen 50 mg/dL (9-23); Sodium 134 mmol/L (136-145)
[2024-02-06] MEDS: HYDROcodone-ACET 5/325MG TAB PO PRN (08:25)
[2024-02-06] MEDS: cefTRIAXone 1GM/50ML D5W 50 ML IV SCH (09:02)
--- NOTE | 2024-02-06 11:31 | DVHPN2 ---
Progress Note Date Seen: Feb 06, 2024 Medical Necessity Reason Pt with a Central, PICC or Fol: No Subjective Patient reports: No new complaints Other Systems: Patient seen and examined by myself today in follow-up Objective vital signs Vital Sign Date Time Temp Pulse Resp B/P (MAP) Pulse Ox O2 Delivery O2 Flow Rate FiO2 02/06/24 09:00 98.8 89 20 108/51 (70) 99 98.8 02/06/24 08:00 Room Air* 0 21 Total Intake and Output 02/05/24 02/05/24 02/06/24 15:00 23:00 07:00 Intake Total 840 ml 350 ml 300 ml Output Total 800 ml Balance 40 ml 350 ml 300 ml medications Current Medications Medications Dose Ordered Sig/Nely Route Start Time Stop Time Status Last Admin Dose Admin Ceftriaxone Sodium 50 ml @ 100 mls/hr DAILY@09 IV 02/06/24 09:00 02/06/24 09:02 100 MLS/HR Metronidazole 100 ml @ 100 mls/hr Q8HR IV 02/05/24 14:00 02/06/24 05:16 100 MLS/HR Pantoprazole Sodium 40 mg DAILY IV 02/05/24 10:00 02/06/24 09:02 40 MG Diagnostic Test (Pha) 1 strip IQ4HR 02/05/24 08:00 02/06/24 08:25 1 STRIP Dextrose 50 ml UD PRN IV 02/05/24 05:30 Acetaminophen/ Hydrocodone Bitart 1 tab Q4HP PRN PO 02/05/24 05:30 02/06/24 08:25 1 TAB Ondansetron HCl 4 mg Q4HP PRN IV 02/05/24 05:30 Docusate Sodium 100 mg BIDPRN PRN PO 02/05/24 05:30 Acetaminophen 650 mg Q6HP PRN PO 02/05/24 05:30 Morphine Sulfate 2 mg Q4HPRN PRN IV 02/05/24 05:30 02/05/24 20:40 2 MG Nitroglycerin 0.4 mg Q5MINP PRN SL 02/05/24 06:30 Morphine Sulfate 2 mg Q30M PRN IV 02/05/24 06:30 Insulin Human Regular IQ4HR SC 02/05/24 07:00 02/06/24 08:26 12 UNITS Sodium Chloride 1,000 ml @ 75 mls/hr [id number] IV 02/05/24 17:00 02/05/24 19:04 75 MLS/HR Examination: LUNGS:Normal, CVS:Normal, MSK:Normal laboratory and microbiology Laboratory Tests 02/06/24 04:42 Test 02/06/24 04:42 Range/Units Serum Glucose 241 H 74-106 mg/dL Problem List/Assessment/Plan Problem List/Assessment/Plan Acute kidney injury superimposed Chronic Kidney Disease secondary hemodynamic mediated Diabetes mellitus uncontrolled Hyperglycemia Dehydration Hyponatremia dilutional due to high per glycemia Hypokalemia Nodular liver Pancreatitis Colitis Urinary tract infection Recommendations Kidney function slowly improving Increased urine output Strict I&Os Insulin sliding scale IV fluid hydration IV antibiotics Check urine protein excretion Check kidney ultrasound We will continue to follow up Plan discussed with: Patient VICTORINO CARREON MD Feb 06, 2024 11:31
[2024-02-06 12:09] LABS: Hepatitis B Surface Antigen Negative (Negative)
--- NOTE | 2024-02-06 12:23 | DVH ---
INDICATION: 33 years old, Female; bryce. TECHNIQUE: Multiple real-time sonographic images of the kidneys and bladder were obtained. COMPARISON: None FINDINGS: The right kidney measures 12.7 cm in length, which is normal in size. There is normal echogenicity of the right kidney. No hydronephrosis. The left kidney measures 12.0 cm in length, which is normal in size. There is normal echogenicity of the left kidney. No hydronephrosis. The urinary bladder is underdistended which limits evaluation. IMPRESSION: 1. Normal sonographic appearance of the kidneys. No hydronephrosis.
[2024-02-06 12:30] LABS: Hepatitis C Antibody Negative (Negative)
[2024-02-06] MEDS: IRON SUCROSE COMPLEX 110 ML IV SCH (13:16)
[2024-02-06] MEDS: AMPICILLIN & SULBACTAM SODIUM 3 GM in SODIUM CHL 0.9% 100 ML IV SCH (16:30)
[2024-02-06 17:01] LABS: Basophils # (auto) 0 10 ^3/uL (0-0.2); Red Cell Distribution Width 14.2 % (11.8-14.3)
[2024-02-06 17:04] LABS: Basophils % (auto) 0.3 % (0.0-2.0); Eosinophils # (auto) 0 10 ^3/uL (0-0.8); Eosinophils % (auto) 0.2 % (0.0-7.0); Hematocrit 38.3 % (36.0-46.0); Hemoglobin 12.5 g/dL (12.2-16.2); Lymphocytes # (auto) 0.9 10 ^3/uL (0.4-5.4); Mean Corpuscular Hemoglobin 25.8 pg (28.0-32.0); Mean Corpuscular Hgb Conc. 32.7 g/dL (32.0-36.0); Mean Corpuscular Volume 78.7 fL (80.0-100.0); Neutrophils % (auto) 87.5 % (37.0-80.0); Platelet Count (auto) 390 10^3/uL (140-450); Red Blood Cells 4.86 10^6/uL (4.0-5.20); White Blood Cell 15.9 10^3/uL (4.4-10.8)
[2024-02-06] MEDS: ONDANSETRON HCL 4 MG/2 ML VIAL IV PRN (17:06)
[2024-02-06 17:32] LABS: Protein, Urine 35.3 mg/dL (1-14)
[2024-02-06 17:33] LABS: Creatinine, Urine 100.52 mg/dL (30.0-125.0)
[2024-02-06 17:35] LABS: Creatinine, Urine 99.81 mg/dL (30.0-125.0); Urine Protein/Creatinine Ratio 0.35
--- NOTE | 2024-02-06 20:05 | DVHPN2 ---
Subjective 33-year-old female, diabetic, poor historian admitted for acute abdominal pain. Patient is seen by me today during rounds Patient was found lying in bed in distress, having bloody stool visible around the bed and comode. no vomiting. Patient answers but seems tangential. UDS positive for fentanyl. Breathing regularly and speaking full sentence however uncomfortable. Total critical care time spent on this patient more than 30 minutes including evaluation, chart review, formulating plan and communication with team, excluding any procedures Reviewed: H&P Changes from previous H/P or p: No Changes Eyes: No Pain, No Vision change, No Conjunctivae inflammation, No Eyelid inflammation, No Other, No Redness ENT: No Ear pain, No Ear discharge, No Nose pain, No Nose discharge, No Nose congestion, No Mouth pain, No Mouth swelling, No Throat pain, No Throat swelling, No Other Cardiovascular: No Chest Pain, No Palpitations, No Orthopnea, No Paroxysmal Noc. Dyspnea, No Edema, No Lt Headedness, No Other Respiratory: No Cough, No Dry, No Shortness of breath, No SOB with excertion, No Wheezing, No Hemoptysis, No Pleuritic Pain, No Sputum, No Other Gastrointestinal: Abdominal Pain Genitourinary: No Dysuria, No Frequency, No Incontinence, No Hematuria, No Retention, No Other Musculoskeletal: No other, No neck pain, No shoulder pain, No arm pain, No back pain, No hand pain, No leg pain, No foot pain Skin: Other Objective Vitals Vital Signs Date Time Temp Pulse Resp B/P (MAP) Pulse Ox O2 Delivery O2 Flow Rate FiO2 02/06/24 13:00 97.6 116 19 140/74 (96) 98 97.6 02/06/24 08:00 Room Air* 0 21 Intake/Output Intake and Output 02/06/24 04:00 Intake Total 1585 ml Output Total 800 ml Balance 785 ml Intake Oral 250 ml IV Total 1335 ml Output Urine Total 800 ml Exam Alert, oriented x3 Obese Disheveled PERRLA Speak in full sentences Clear breath sounds bilaterally S1-S2 regular rate and rhythm, distant Abdomen tender diffusely, no flank pain Moving all extremities Macular and vesicular rash on bilateral buttocks and inner thigh, symmetrical, different stage of healing Medications Current Medications Medications Dose Ordered Sig/Nely Route Start Time Stop Time Status Last Admin Dose Admin Pantoprazole Sodium 40 mg DAILY IV 02/05/24 10:00 02/06/24 09:02 40 MG Diagnostic Test (Pha) 1 strip IQ4HR 02/05/24 08:00 02/06/24 16:44 1 STRIP Dextrose 50 ml UD PRN IV 02/05/24 05:30 Ondansetron HCl 4 mg Q4HP PRN IV 02/05/24 05:30 02/06/24 17:06 4 MG Acetaminophen 650 mg Q6HP PRN PO 02/05/24 05:30 Insulin Human Regular IQ4HR SC 02/05/24 07:00 02/06/24 16:44 12 UNITS Sodium Chloride 1,000 ml @ 75 mls/hr [id number] IV 02/05/24 17:00 02/05/24 19:04 75 MLS/HR Iron Sucrose 110 ml @ 110 mls/hr DAILY@1200 IV 02/06/24 12:00 02/10/24 12:59 02/06/24 13:16 110 MLS/HR Ampicillin Sodium/ Sulbactam Sodium 3 gm/Sodium Chloride 100 ml @ 100 mls/hr Q6H IV 02/06/24 16:30 Laboratory Results Laboratory Tests 02/06/24 04:42 02/06/24 16:43 Chemistry Test 02/06/24 04:42 02/06/24 16:43 Albumin 3.1 g/dL (3.2-4.8) L Calcium Level 8.4 mg/dL (8.7-10.4) L Magnesium Level 2.5 mg/dL (1.6-2.6) Phosphorus Level 2.5 mg/dL (2.4-5.1) 2.6 mg/dL (2.4-5.1) Total Protein 6.9 g/dL (5.7-8.2) LFT Test 02/06/24 04:42 Alanine Aminotransferase (ALT) < 9 U/L (7-40) Alkaline Phosphatase 57 U/L (46-116) Aspartate Amino Transferase (AST) 9 U/L (13-40) L Total Bilirubin 0.5 mg/dL (0.2-1.0) Urinalysis Test 02/05/24 01:29 02/06/24 16:30 Urine Color Light-orange (Yellow) Urine Clarity Ex.turbid (Clear) Urine pH 5.5 (5.0-9.0) Urine Specific [place] 1.014 (1.001-1.035) Urine Protein 2+ (Negative) H Urine Ketones Negative (Negative) Urine Blood 3+ /uL (Negative) H Urine Nitrite Negative (Negative) Urine Bilirubin Negative (Negative) Urine Urobilinogen Normal mg/dL (Negative) Urine Leukocyte Esterase 3+ /uL (Negative) Urine RBC 37 /hpf (0 - 4) Urine WBC 400 /hpf (0 - 5) Urine WBC Clumps Present /hpf (None Seen) Urine Squamous Epithelial Cells Few /hpf (<5) Urine Bacteria Many /hpf (None Seen) H Urine Mucus Few (None Seen) Urine Glucose 2+ mg/dL (Normal) H Urine Creatinine 99.81 mg/dL (30.0-125.0) Urine Protein/Creatinine Ratio 0.35 Urine Sodium 12 mmol/L (40-220) L Urine Total Protein 35.3 mg/dL (1-14) H Labs and/or images reviewed: Labs reviewed by me, Image(s) reviewed by me Assessment/Plan Assessment/Plan Acute abdominal pain Bloody diarrhea ROSALINDA 2/2 VMN on likely CKD Leukocytosis Rash Hyperparathyroid likely secondary to CKD Iron deficiency anemia Diabetes with hyperglycemia Hypokalemia Possible altered mental status, likely toxic metabolic encephalopathy UDS positive for fentanyl Start Unasyn Rectal tube Trend H&H Consult GI Trend lipase Renal consult appreciated Send stool for occult blood, shiga, culture, C diff Bilirubin normal, send smear rule out H U.S. unlikely IV hydration , gentle Diet bland DVT prophylaxis contraindicated Plan discussed with: Patient My Orders Orders - EDGAR LEAVITT MD Procedure Category Date Status Time Stool Bacterial CARLI 02/06/24 In Process Culture 15:42 Insert Rectal Tube ORDERS 02/06/24 Transmitted 15:42 Clear Liq Diet DIET 02/06/24 Transmitted Dinner Ampicillin & PHA 02/06/24 In Process Sulbactam Sodium 16:30 Complete Blood Count LAB 02/07/24 Verified 04:00 Basic Metabolic Panel LAB 02/07/24 Verified 04:00 Date of Service: Feb 06, 2024 Billing Provider: EDGAR LEAVITT MD Common Visit Codes: [id number] INP/OBS CARE(HIGH), [id number] CARE 30-74 MIN EDGAR LEAVITT MD Feb 06, 2024 20:05
[2024-02-07] VITALS (7 sets, daily range): BP systolic 98–135; BP diastolic 54–73; PULSE 90–103; RESP 18–20; TEMP 97.5–98.9; O2SAT 92–100
[2024-02-07] MEDS: ACETAMINOPHEN 325 MG TAB PO PRN (03:48)
[2024-02-07 05:37] LABS: Basophils # (auto) 0 10 ^3/uL (0-0.2); Basophils % (auto) 0.3 % (0.0-2.0); Eosinophils # (auto) 0.2 10 ^3/uL (0-0.8); Eosinophils % (auto) 1.8 % (0.0-7.0); Hematocrit 30.6 % (36.0-46.0); Hemoglobin 10.2 g/dL (12.2-16.2); Lymphocytes # (auto) 1.1 10 ^3/uL (0.4-5.4); Lymphocytes % (auto) 11.1 % (10.0-50.0); Mean Corpuscular Hgb Conc. 33.3 g/dL (32.0-36.0); Mean Corpuscular Volume 78.2 fL (80.0-100.0); Monocytes # (auto) 0.9 10 ^3/uL (0-1.3); Monocytes % (auto) 9.1 % (0.0-12.0); Neutrophils # (auto) 7.8 10 ^3/uL (1.6-8.6); Neutrophils % (auto) 77.7 % (37.0-80.0); Platelet Count (auto) 288 10^3/uL (140-450); Red Blood Cells 3.91 10^6/uL (4.0-5.20); Red Cell Distribution Width 14.4 % (11.8-14.3); White Blood Cell 10.1 10^3/uL (4.4-10.8)
[2024-02-07 05:53] LABS: Chloride 101 mmol/L (98-107); Potassium 2.9 mmol/L (3.5-5.1); Sodium 134 mmol/L (136-145)
[2024-02-07 05:54] LABS: Anion Gap 8 (5-15); Carbon Dioxide 25 mmol/L (20-31)
[2024-02-07 05:59] LABS: BUN/Creatinine Ratio 21.4 (10.0-20.0); Glucose 208 mg/dL (74-106)
[2024-02-07 06:20] LABS: Blood Urea Nitrogen 39 mg/dL (9-23)
[2024-02-07] MEDS: SODIUM CHLORIDE 0.9% 1,000 ML IV ONE (08:15)
[2024-02-07] MEDS: POTASSIUM EFFERVESENT TAB 25 MEQ PO ONE ×2 (11:46→16:55)
[2024-02-07] MEDS: POTASSIUM CHL 20MEQ/100ML 100 ML IV SCH ×2 (11:46→18:00)
[2024-02-07 12:12] LABS: Basophils # (auto) 0 10 ^3/uL (0-0.2); Basophils % (auto) 0.3 % (0.0-2.0); Eosinophils # (auto) 0.1 10 ^3/uL (0-0.8); Hemoglobin 9.3 g/dL (12.2-16.2); Mean Corpuscular Volume 79.5 fL (80.0-100.0); Monocytes # (auto) 0.6 10 ^3/uL (0-1.3)
[2024-02-07 12:15] LABS: Eosinophils % (auto) 1.5 % (0.0-7.0); Hematocrit 28.5 % (36.0-46.0); Lymphocytes % (auto) 12.4 % (10.0-50.0); Mean Corpuscular Hgb Conc. 32.8 g/dL (32.0-36.0); Monocytes % (auto) 7.8 % (0.0-12.0); Neutrophils # (auto) 6.1 10 ^3/uL (1.6-8.6); Platelet Count (auto) 245 10^3/uL (140-450); Red Blood Cells 3.59 10^6/uL (4.0-5.20); Red Cell Distribution Width 14.3 % (11.8-14.3); White Blood Cell 7.9 10^3/uL (4.4-10.8)
[2024-02-07 12:23] LABS: Chloride 102 mmol/L (98-107); Potassium 3.2 mmol/L (3.5-5.1); Sodium 134 mmol/L (136-145)
[2024-02-07 12:24] LABS: Anion Gap 5 (5-15); Calcium 7.8 mg/dL (8.7-10.4); Carbon Dioxide 27 mmol/L (20-31)
[2024-02-07 12:29] LABS: BUN/Creatinine Ratio 19.3 (10.0-20.0); Blood Urea Nitrogen 33 mg/dL (9-23); Glucose 250 mg/dL (74-106)
--- NOTE | 2024-02-07 14:48 | DVHINCON2 ---
Date of service: Feb 07, [address] Marcum Reason for Consultation Abdominal pain and diarrhea History of Present Illness The patient is a 33-year-old obese female with past medical history of diabetes mellitus who presented to [facility] ED with severe lower abdominal pain, associated diarrhea, nausea, vomiting, getting worse that prompted this visit. Patient was seen at bedside. She is a poor historian and is not giving a good history. She appears to have a generalized maculopapular rash on her hands and on-site inside her thighs. Patient has a rectal tube in place and is having some loose watery dark greenish diarrhea. Urinalysis positive for urinary tract infection. Abdomen/pelvis CT revealing diffuse wall thickening of the large bowel and scattered small bowel which could reflect infectious or inflammatory enterocolitis, hepatomegaly. Patient was started on IV antibiotic regimen Flagyl. Past Medical History Past Medical History DM Obesity Noncompliance with medications Past Surgical History Past Surgical History Denies all surgeries Family History: Patient reports no known family medical history. Allergies: Coded Allergies: NO KNOWN ALLERGIES (Unverified , 02/04/24) Current Medications Current Medications Medications (Trade) Dose Ordered Sig/Nely Route PRN Reason Start Time Stop Time Status Last Admin Ampicillin Sodium/ Sulbactam Sodium 3 gm/Sodium Chloride 100 ml @ 100 mls/hr Q6H IV 02/06/24 16:30 02/07/24 09:29 Potassium Chloride 100 ml @ 50 mls/hr Q2H IV 02/07/24 08:15 02/07/24 12:14 DC 02/07/24 11:46 Vital Signs Vital Signs Date Time Temp Pulse Resp B/P (MAP) Pulse Ox O2 Delivery O2 Flow Rate FiO2 02/07/24 13:00 98.9 90 20 98/54 (69) 92 98.9 02/07/24 08:00 Room Air* 0 21 Physical Exam Obese Disheveled PERRLA Speak in full sentences Clear breath sounds bilaterally S1-S2 regular rate and rhythm, distant Abdomen tender diffusely, no flank pain Extremities Moving all extremities Macular and vesicular rash on bilateral buttocks and inner thigh, symmetrical, different stage of healing and also in her hands Labs/Diagnostic Data Labs Test 02/07/24 11:50 02/07/24 11:41 02/06/24 16:44 02/06/24 16:43 Range/Units White Blood Count 7.9 4.4-10.8 10^3/uL Red Blood Count 3.59 L 4.0-5.20 10^6/uL Hemoglobin 9.3 L 12.2-16.2 g/dL Hematocrit 28.5 L 36.0-46.0 % Mean Corpuscular Volume 79.5 L 80.0-100.0 fL Mean Corpuscular Hemoglobin 26.0 L 28.0-32.0 pg Mean Corpuscular Hemoglobin Concent 32.8 32.0-36.0 g/dL Red Cell Distribution Width 14.3 11.8-14.3 % Platelet Count 245 140-450 10^3/uL Mean Platelet Volume 8.9 6.9-10.8 fL Neutrophils (%) (Auto) 78.0 37.0-80.0 % Lymphocytes (%) (Auto) 12.4 10.0-50.0 % Monocytes (%) (Auto) 7.8 0.0-12.0 % Eosinophils (%) (Auto) 1.5 0.0-7.0 % Basophils (%) (Auto) 0.3 0.0-2.0 % Neutrophils # (Auto) 6.1 1.6-8.6 10 ^3/uL Lymphocytes # (Auto) 1.0 0.4-5.4 10 ^3/uL Monocytes # (Auto) 0.6 0-1.3 10 ^3/uL Eosinophils # (Auto) 0.1 0-0.8 10 ^3/uL Basophils # (Auto) 0 0-0.2 10 ^3/uL Nucleated Red Blood Cells 0.0 % Sodium Level 134 L 136-145 mmol/L Potassium Level 3.2 L 3.5-5.1 mmol/L Chloride Level 102 98-107 mmol/L Carbon Dioxide Level 27 20-31 mmol/L Anion Gap 5 5-15 Blood Urea Nitrogen 33 H 9-23 mg/dL Creatinine 1.71 H 0.550-1.02 mg/dL Glomerular Filtration Rate Calc 40 >90 mL/min BUN/Creatinine Ratio 19.3 10.0-20.0 Serum Glucose 250 H 74-106 mg/dL Calcium Level 7.8 L 8.7-10.4 mg/dL POC Glucose 244 H 70-106 mg/dl Stool Occult Blood Positive Negative Stool Occult Blood Sample #3 Negative Phosphorus Level 2.6 2.4-5.1 mg/dL Vitamin D 25-Hydroxy 34.0 30.0-100 ng/mL Test 02/06/24 16:30 02/06/24 04:42 02/05/24 05:56 02/05/24 01:48 Range/Units Urine Creatinine 99.81 30.0-125.0 mg/dL Urine Protein/Creatinine Ratio 0.35 Urine Sodium 12 L 40-220 mmol/L Urine Total Protein 35.3 H 1-14 mg/dL Magnesium Level 2.5 1.6-2.6 mg/dL Iron Level 17 L 50-170 ug/dL Total Iron Binding Capacity 206 L 250-425 ug/dL Percent Iron Saturation 8.3 L 15-50 % Ferritin 209.3 10-291 ng/mL Total Bilirubin 0.5 0.2-1.0 mg/dL Aspartate Amino Transferase (AST) 9 L 13-40 U/L Alanine Aminotransferase (ALT) < 9 7-40 U/L Alkaline Phosphatase 57 46-116 U/L Total Protein 6.9 5.7-8.2 g/dL Albumin 3.1 L 3.2-4.8 g/dL Parathyroid Hormone (Intact) 112.0 H 18.4-80.1 pg/mL Hepatitis B Surface Antigen Negative Negative Hepatitis C Antibody Negative Negative Hemoglobin A1c 9.9 H <5.7 % A1C Prothrombin Time 11.6 9.3-11.8 sec Prothrombin Time INR 1.10 0.9-1.15 Activated Partial Thromboplast Time 27.1 24.5-34.5 SEC Test 02/05/24 01:29 02/04/24 22:00 02/04/24 21:18 Range/Units Urine Color Light-orange Yellow Urine Clarity Ex.turbid Clear Urine pH 5.5 5.0-9.0 Urine Specific [place] 1.014 1.001-1.035 Urine Protein 2+ H Negative Urine Ketones Negative Negative Urine Blood 3+ H Negative /uL Urine Nitrite Negative Negative Urine Bilirubin Negative Negative Urine Urobilinogen Normal Negative mg/dL Urine Leukocyte Esterase 3+ Negative /uL Urine RBC 37 0 - 4 /hpf Urine WBC 400 0 - 5 /hpf Urine WBC Clumps Present None Seen /hpf Urine Squamous Epithelial Cells Few <5 /hpf Urine Bacteria Many H None Seen /hpf Urine Mucus Few None Seen Urine Glucose 2+ H Normal mg/dL Urine Opiates Screen Neg NEGATIVE Urine Fentanyl Screen Pos NEGATIVE Urine Barbiturates Screen Neg NEGATIVE Urine Phencyclidine Screen Neg NEGATIVE Urine Amphetamines Screen Neg NEGATIVE Urine Benzodiazepines Screen Neg NEGATIVE Urine Cocaine Screen Neg NEGATIVE Urine Cannabinoids Screen Neg NEGATIVE Blood Gas Specimen Type Arterial Blood Gas Sample Site Left radial Blood Gas Patient Temperature 37.0 Arterial Blood Date Drawn [id number] Arterial Blood pH 7.462 H 7.350-7.450 Arterial Blood Partial Pressure CO2 36.2 32.0-45.0 mmHg Arterial Blood Partial Pressure O2 72.5 L 83.0-108.0 mmHg Arterial Blood HCO3 25.3 21.0-28.0 mmol/L Arterial Blood Oxygen Saturation 94.8 94.0-98.0 % Arterial Blood Base Excess 1.7 -2.0-3.0 mmol/L Arterial Blood Oxyhemoglobin 93.2 L 94.0-98.0 % Arterial Blood Carboxyhemoglobin 1.1 0.5-1.5 % Arterial Blood Methemoglobin 0.6 0.0-1.5 % Lakhwinder Test Yes Blood Gas Total Hemoglobin 12.70 12.0-16.0 g/dL Blood Gas Liter Flow 0.00 Blood Gas Modality Room air Blood Gas Spontaneous Rate 18 FiO2 % 21.0 Specimen Drawn By [facility] rt Lipase 100 H 12-53 U/L Beta HCG, Quantitative 0.2 L 1.5-4.2 mIU/mL Microbiology Date/Time Source Procedure Growth Status 02/06/24 16:44 Stool Stool Culture - Preliminary Resulted 02/06/24 16:44 Stool Shiga Toxin I & II - Final Resulted 02/06/24 16:30 Voided Urine Urine Culture - Preliminary Resulted CT SCAN ABD PELVIS IMPRESSION: 1. Diffuse wall thickening of the large bowel and scattered small bowel which could reflect infectious or inflammatory enterocolitis. 2. Circumferential wall thickening of the urinary bladder nonspecific though may reflect cystitis. Correlate with urinalysis 3. Iaoi-eq-laxrptew right hydroureteronephrosis which tapers distally with mild right urothelial thickening which could be related to ascending infection. This could also be evaluated with a urinalysis. 4. Hepatosplenomegaly. 5. Nodular contour of the liver which may be fibrosis or cirrhosis. Correlate with liver enzymes and clinical history. 6. Cholelithiasis. Problems(with codes): (1) Unspecified kidney failure (2) Acute abdominal pain (3) Unspecified cirrhosis of liver (4) Calculus of gallbladder without cholecystitis without obstruction (5) Leukocytosis, unspecified (6) Gastrointestinal hemorrhage, unspecified (7) Liver cirrhosis (8) Lower abdominal pain, unspecified (9) Acute diarrhea (10) GIB (gastrointestinal bleeding) Plan/Recommendation Assessment plan Patient is somewhat unkempt disheveled and appears to have poor hygiene Her rash in her thighs and her hands is noted ; rule out scabies or infectious etiology Recommend ID consult Stool for WBC, C diff, bacterial culture IV antibiotics IV fluid hydration Monitor labs; check ESR, anemia workup Supportive care for now Further recommendations pending results of the above Nephrology consult appreciated Elective colonoscopy to be considered once medically stabilized Plan discussed with: Patient, Other (Nurse) PAWAN LYNN MD Feb 07, 2024 14:48
--- NOTE | 2024-02-07 15:03 | DVHPN2 ---
Progress Note Date Seen: Feb 07, 2024 Medical Necessity Reason Pt with a Central, PICC or Fol: No Subjective Patient reports: No new complaints Other Systems: Patient seen and examined by myself today in follow-up Objective vital signs Vital Sign Date Time Temp Pulse Resp B/P (MAP) Pulse Ox O2 Delivery O2 Flow Rate FiO2 02/07/24 13:00 98.9 90 20 98/54 (69) 92 98.9 02/07/24 08:00 Room Air* 0 21 Total Intake and Output 02/06/24 02/06/24 02/07/24 15:00 23:00 07:00 Intake Total 110 ml 2100 ml 825 ml Output Total 500 ml Balance 110 ml 2100 ml 325 ml medications Current Medications Medications Dose Ordered Sig/Nely Route Start Time Stop Time Status Last Admin Dose Admin Pantoprazole Sodium 40 mg DAILY IV 02/05/24 10:00 02/07/24 09:28 40 MG Diagnostic Test (Pha) 1 strip IQ4HR 02/05/24 08:00 02/07/24 11:46 1 STRIP Dextrose 50 ml UD PRN IV 02/05/24 05:30 Ondansetron HCl 4 mg Q4HP PRN IV 02/05/24 05:30 02/06/24 17:06 4 MG Acetaminophen 650 mg Q6HP PRN PO 02/05/24 05:30 02/07/24 03:48 650 MG Insulin Human Regular IQ4HR SC 02/05/24 07:00 02/07/24 11:46 6 UNITS Sodium Chloride 1,000 ml @ 75 mls/hr [id number] IV 02/05/24 17:00 02/07/24 09:28 75 MLS/HR Iron Sucrose 110 ml @ 110 mls/hr DAILY@1200 IV 02/06/24 12:00 02/10/24 12:59 02/07/24 11:46 110 MLS/HR Ampicillin Sodium/ Sulbactam Sodium 3 gm/Sodium Chloride 100 ml @ 100 mls/hr Q6H IV 02/06/24 16:30 02/07/24 09:29 100 MLS/HR Examination: LUNGS:Normal, CVS:Normal, MSK:Normal laboratory and microbiology Laboratory Tests 02/07/24 11:50 Test 02/07/24 11:50 Range/Units Serum Glucose 250 H 74-106 mg/dL Microbiology Date/Time Source Procedure Growth Status 02/06/24 16:44 Stool Stool Culture - Preliminary Resulted 02/06/24 16:44 Stool Shiga Toxin I & II - Final Resulted 02/06/24 16:30 Voided Urine Urine Culture - Preliminary Resulted Problem List/Assessment/Plan Problem List/Assessment/Plan Acute kidney injury superimposed Chronic Kidney Disease secondary hemodynamic mediated, FeNa < 1% Diabetes mellitus uncontrolled Hyperglycemia Dehydration Hyponatremia dilutional due to high per glycemia Hypokalemia Nodular liver Pancreatitis Colitis Urinary tract infection Recommendations Kidney function slowly improving Increased urine output Strict I&Os Insulin sliding scale IV fluid hydration IV antibiotics kidney ultrasound reported within normal limits We will continue to follow up Plan discussed with: Patient VICTORINO CARREON MD Feb 07, 2024 15:03
--- NOTE | 2024-02-07 16:07 | DVHPN2 ---
Subjective 33-year-old female, diabetic, poor historian admitted for acute abdominal pain. Patient is seen by me today during rounds More alert today, however still have conflicting history. Surgicel having bloody diarrhea. Per patient bloody diarrhea has been happening for3 days, does not recall eating anything different other than "a ton of Chilis". GI today, for elective colonoscopy once stable. Patient persistently having mild tachycardia and wide blood pressure readings. Shiga toxin and hemorrhagic E coli not found in stool sample. On Unasyn and vanc. No changes in her rash. Total critical care time spent on this patient more than 30 minutes including evaluation, chart review, formulating plan and communication with team, excluding any procedures Reviewed: H&P Changes from previous H/P or p: No Changes Eyes: No Pain, No Vision change, No Conjunctivae inflammation, No Eyelid inflammation, No Other, No Redness ENT: No Ear pain, No Ear discharge, No Nose pain, No Nose discharge, No Nose congestion, No Mouth pain, No Mouth swelling, No Throat pain, No Throat swelling, No Other Cardiovascular: No Chest Pain, No Palpitations, No Orthopnea, No Paroxysmal Noc. Dyspnea, No Edema, No Lt Headedness, No Other Respiratory: No Cough, No Dry, No Shortness of breath, No SOB with excertion, No Wheezing, No Hemoptysis, No Pleuritic Pain, No Sputum, No Other Gastrointestinal: Abdominal Pain Genitourinary: No Dysuria, No Frequency, No Incontinence, No Hematuria, No Retention, No Other Musculoskeletal: No other, No neck pain, No shoulder pain, No arm pain, No back pain, No hand pain, No leg pain, No foot pain Skin: Other Objective Vitals Vital Signs Date Time Temp Pulse Resp B/P (MAP) Pulse Ox O2 Delivery O2 Flow Rate FiO2 02/07/24 13:00 98.9 90 20 98/54 (69) 92 98.9 02/07/24 08:00 Room Air* 0 21 Intake/Output Intake and Output 02/07/24 07:00 Intake Total 3035 ml Output Total 500 ml Balance 2535 ml Intake Oral 2275 ml IV Total 760 ml Output Urine Total 500 ml # Bowel Movements 6 Exam Alert, oriented x3 Obese Disheveled PERRLA Speak in full sentences Clear breath sounds bilaterally S1-S2 regular rate and rhythm, distant Abdomen tender diffusely, no flank pain Moving all extremities Macular and vesicular rash on bilateral buttocks and inner thigh, symmetrical, different stage of healing Medications Current Medications Medications Dose Ordered Sig/Nely Route Start Time Stop Time Status Last Admin Dose Admin Pantoprazole Sodium 40 mg DAILY IV 02/05/24 10:00 02/07/24 09:28 40 MG Diagnostic Test (Pha) 1 strip IQ4HR 02/05/24 08:00 02/07/24 11:46 1 STRIP Dextrose 50 ml UD PRN IV 02/05/24 05:30 Ondansetron HCl 4 mg Q4HP PRN IV 02/05/24 05:30 02/06/24 17:06 4 MG Acetaminophen 650 mg Q6HP PRN PO 02/05/24 05:30 02/07/24 03:48 650 MG Insulin Human Regular IQ4HR SC 02/05/24 07:00 02/07/24 11:46 6 UNITS Sodium Chloride 1,000 ml @ 75 mls/hr [id number] IV 02/05/24 17:00 02/07/24 09:28 75 MLS/HR Iron Sucrose 110 ml @ 110 mls/hr DAILY@1200 IV 02/06/24 12:00 02/10/24 12:59 02/07/24 11:46 110 MLS/HR Ampicillin Sodium/ Sulbactam Sodium 3 gm/Sodium Chloride 100 ml @ 100 mls/hr Q6H IV 02/06/24 16:30 02/07/24 09:29 100 MLS/HR Laboratory Results Laboratory Tests 02/07/24 11:50 Chemistry Test 02/06/24 16:43 02/07/24 04:47 02/07/24 11:50 Phosphorus Level 2.6 mg/dL (2.4-5.1) Calcium Level 8.0 mg/dL (8.7-10.4) L 7.8 mg/dL (8.7-10.4) L Urinalysis Test 02/05/24 01:29 02/06/24 16:30 Urine Color Light-orange (Yellow) Urine Clarity Ex.turbid (Clear) Urine pH 5.5 (5.0-9.0) Urine Specific [place] 1.014 (1.001-1.035) Urine Protein 2+ (Negative) H Urine Ketones Negative (Negative) Urine Blood 3+ /uL (Negative) H Urine Nitrite Negative (Negative) Urine Bilirubin Negative (Negative) Urine Urobilinogen Normal mg/dL (Negative) Urine Leukocyte Esterase 3+ /uL (Negative) Urine RBC 37 /hpf (0 - 4) Urine WBC 400 /hpf (0 - 5) Urine WBC Clumps Present /hpf (None Seen) Urine Squamous Epithelial Cells Few /hpf (<5) Urine Bacteria Many /hpf (None Seen) H Urine Mucus Few (None Seen) Urine Glucose 2+ mg/dL (Normal) H Urine Creatinine 99.81 mg/dL (30.0-125.0) Urine Protein/Creatinine Ratio 0.35 Urine Sodium 12 mmol/L (40-220) L Urine Total Protein 35.3 mg/dL (1-14) H Microbiology Microbiology Date/Time Source Procedure Growth Status 02/06/24 16:44 Stool Stool Culture - Preliminary Resulted 02/06/24 16:44 Stool Shiga Toxin I & II - Final Resulted 02/06/24 16:30 Voided Urine Urine Culture - Preliminary Resulted Assessment/Plan Assessment/Plan Acute abdominal pain Bloody diarrhea likely infectious colitis ROSALINDA 2/2 VMN on likely CKD Leukocytosis Rash Hyperparathyroid likely secondary to CKD Iron deficiency anemia Diabetes with hyperglycemia Hypokalemia Possible altered mental status, likely toxic metabolic encephalopathy UDS positive for fentanyl Pancreatitis Start Unasyn Rectal tube Trend H&H Trend lipase Renal consult appreciated Stool positive for occult blood, negative Shiga toxin, hemorrhagic E coli, Campylobacter Urine culture ngtd IV hydration , gentle GI consult appreciated Tele psych 1 stable tangential thoughts ID consult Low threshold for transfusion, we will transfuse if hemoglobin below Diet bland DVT prophylaxis contraindicated Plan discussed with: Patient My Orders Orders - EDGAR LEAVITT MD Procedure Category Date Status Time Ampicillin & PHA 02/06/24 In Process Sulbactam Sodium 16:30 Complete Blood Count LAB 02/08/24 Verified 04:00 Basic Metabolic Panel LAB 02/08/24 Verified 04:00 Magnesium LAB 02/08/24 Verified 04:00 Phosphorus LAB 02/08/24 Verified 04:00 Potassium Chl [place]avo PHA 02/07/24 Verified KCL 16:00 Potassium Effervesent PHA 02/07/24 Verified Tab (Klor-Con/Ef) 16:00 Date of Service: Feb 07, 2024 Billing Provider: EDGAR LEAVITT MD Common Visit Codes: [id number] INP/OBS CARE(HIGH), [id number] CARE 30-74 MIN EDGAR LEAVITT MD Feb 07, 2024 16:07
[2024-02-08 05:00] VITALS: BP 146/61; PULSE 92; RESP 20; TEMP 98.2; O2SAT 99
[2024-02-08 08:00] VITALS: PULSE 90; PULSE 91; RESP 20
[2024-02-08 08:34] LABS: Hematocrit 31.2 % (36.0-46.0); Hemoglobin 10.2 g/dL (12.2-16.2); Mean Corpuscular Hemoglobin 25.7 pg (28.0-32.0); Mean Corpuscular Hgb Conc. 32.7 g/dL (32.0-36.0); Mean Corpuscular Volume 78.5 fL (80.0-100.0); Platelet Count (auto) 276 10^3/uL (140-450); Red Blood Cells 3.97 10^6/uL (4.0-5.20); Red Cell Distribution Width 14.6 % (11.8-14.3); White Blood Cell 7.7 10^3/uL (4.4-10.8)
[2024-02-08 08:40] LABS: Basophils % (manual) 0 (0.0-2.0); Blast Cells 0; Metamyelocytes % 0; Myelocytes % 0; Promyelocytes % 0; Reactive Lymphocytes 0
[2024-02-08 08:41] VITALS: BP 134/44; PULSE 93; RESP 18; TEMP 99.3; O2SAT 98
[2024-02-08 08:44] LABS: Chloride 105 mmol/L (98-107); Potassium 3.7 mmol/L (3.5-5.1); Sodium 135 mmol/L (136-145)
[2024-02-08 08:45] LABS: Anion Gap 4 (5-15); Carbon Dioxide 26 mmol/L (20-31)
[2024-02-08 08:46] LABS: Calcium 7.8 mg/dL (8.7-10.4)
[2024-02-08 08:51] LABS: BUN/Creatinine Ratio 13.7 (10.0-20.0); Blood Urea Nitrogen 21 mg/dL (9-23); Glucose 190 mg/dL (74-106); Magnesium 1.9 mg/dL (1.6-2.6)
[2024-02-08 08:53] LABS: Phosphorus 2.2 mg/dL (2.4-5.1)
--- NOTE | 2024-02-08 09:37 | DVHPN2 ---
Progress Note Date Seen: Feb 08, 2024 Medical Necessity Reason Pt with a Central, PICC or Fol: No Subjective Patient reports: No new complaints Other Systems: Patient seen and examined by myself today on rounds Objective vital signs Vital Sign Date Time Temp Pulse Resp B/P (MAP) Pulse Ox O2 Delivery O2 Flow Rate FiO2 02/08/24 08:41 99.3 93 18 134/44 (74) 98 99.3 02/07/24 20:00 Room Air* 0 21 Total Intake and Output 02/07/24 02/07/24 02/08/24 15:00 23:00 07:00 Intake Total 1100 ml 1970 ml 2068 ml Output Total 900 ml 950 ml Balance 1100 ml 1070 ml 1118 ml medications Current Medications Medications Dose Ordered Sig/Nely Route Start Time Stop Time Status Last Admin Dose Admin Pantoprazole Sodium 40 mg DAILY IV 02/05/24 10:00 02/08/24 09:26 40 MG Dextrose 50 ml UD PRN IV 02/05/24 05:30 Ondansetron HCl 4 mg Q4HP PRN IV 02/05/24 05:30 02/06/24 17:06 4 MG Acetaminophen 650 mg Q6HP PRN PO 02/05/24 05:30 02/08/24 09:26 650 MG Sodium Chloride 1,000 ml @ 75 mls/hr [id number] IV 02/05/24 17:00 02/07/24 22:43 75 MLS/HR Iron Sucrose 110 ml @ 110 mls/hr DAILY@1200 IV 02/06/24 12:00 02/10/24 12:59 02/07/24 11:46 110 MLS/HR Ampicillin Sodium/ Sulbactam Sodium 3 gm/Sodium Chloride 100 ml @ 100 mls/hr Q6H IV 02/06/24 16:30 02/08/24 09:26 100 MLS/HR Diagnostic Test (Pha) 1 strip ACHS 02/08/24 11:30 Insulin Human Regular ACHS SC 02/08/24 11:30 Examination: LUNGS:Normal, CVS:Normal, MSK:Normal laboratory and microbiology Laboratory Tests 02/08/24 08:02 Test 02/08/24 08:02 Range/Units Serum Glucose 190 H 74-106 mg/dL Microbiology Date/Time Source Procedure Growth Status 02/06/24 16:44 Stool Stool Culture - Preliminary Resulted 02/06/24 16:44 Stool Shiga Toxin I & II - Final Resulted 02/06/24 16:30 Voided Urine Urine Culture - Preliminary Resulted Problem List/Assessment/Plan Problem List/Assessment/Plan Acute kidney injury superimposed Chronic Kidney Disease secondary hemodynamic mediated, FeNa < 1% Hepatorenal syndrome Diabetes mellitus uncontrolled Hyperglycemia Dehydration Hyponatremia dilutional, improving Hypokalemia Hypophosphatemia Liver cirrhosis Pancreatitis Colitis Urinary tract infection Recommendations Kidney function is improving Increased urine output Strict I&Os Insulin sliding scale Octreotide 100 mcg subcu q.8 hours K-Phos IV piggyback IV antibiotics kidney ultrasound reported within normal limits We will continue to follow up Plan discussed with: Patient VICTORINO CARREON MD Feb 08, 2024 09:37
[2024-02-08 10:02] LABS: Erythrocyte Sedimentation Rate 60 mm/hr (0-20)
[2024-02-08 10:19] LABS: Band Neutrophils % (manual) 4; Eosinophils % (manual) 1 (0-7); Lymphocytes % (manual) 20 (10.0-50.0); Monocytes % (manual) 5 (0-12); Platelet Estimate Adequate
[2024-02-08] MEDS: ACCU-CHEK COMFORT CURVE STRIP VI SCH (12:26)
[2024-02-08] MEDS: InsuLIN REG 1unit/0.01ml Soln (100units/ml) SC SCH (12:27)
[2024-02-08] MEDS: POTASSIUM PHOSPHATE 22 MEQ in SODIUM CHL 0.9% 100 ML IV ONE (14:14)
[2024-02-08] MEDS: OCTREOTIDE ACETATE 100 MCG/ML VL SUBCUT SCH (14:15)
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
[2024-02-08 17:01] VITALS: BP 102/30; PULSE 88; RESP 20; TEMP 99.1; O2SAT 95
[2024-02-08 20:00] VITALS: PULSE 88; PULSE 96; RESP 20; O2SAT 95
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
--- NOTE | 2024-02-08 23:04 | DVHPN2 ---
Progress Note Date Seen: Feb 08, 2024 Resident Creating Document: CARMEN AKERS RESIDENT Medical Necessity Reason Pt with a Central, PICC or Fol: No Medical Necessity Reason This is a 33-year-old female with past medical history of diabetes mellitus who presented to [facility] ED with severe lower abdominal pain, associated bloody diarrhea, nausea, vomiting, getting worse that prompted this visit. She appears to have a generalized maculopapular rash on her hands. Patient has a rectal tube surgicel in place and is having some loose watery dark greenish diarrhea. Urinalysis positive for urinary tract infection. Initial vitals were Temp: 98.6, HR: 97, rr: 16. Lab work: wbc: 12.5, hgh: 11.5, PLT: 310. Abdomen/pelvis CT revealing diffuse wall thickening of the large bowel and scattered small bowel which could reflect infectious or inflammatory enterocolitis, hepatomegaly. Patient was started on IV antibiotic regimen Flagyl. Subjective Review of Systems General: lying in bed. answering questions Eyes: No Pain, No Vision change, No Conjunctivae inflammation, No Eyelid inflammation, No Other, No Redness ENT: No Ear pain, No Ear discharge, No Nose pain, No Nose discharge, No Nose congestion, No Mouth pain, No Mouth swelling, No Throat pain, No Throat swelling, No Other Cardiovascular: No Chest Pain, No Palpitations, No Orthopnea, No Paroxysmal Noc. Dyspnea, No Edema, No Lt Headedness, No Other Respiratory: No Cough, No Dry, No Shortness of breath, No SOB with excertion, No Wheezing, No Hemoptysis, No Pleuritic Pain, No Sputum, No Other Gastrointestinal: Abdominal Pain Genitourinary: No Dysuria, No Frequency, No Incontinence, No Hematuria, No Retention, No Other Musculoskeletal: No other, No neck pain, No shoulder pain, No arm pain, No back pain, No hand pain, No leg pain, No foot pain Skin: seems like petichiael /ecchymosis rash Objective vital signs Vital Sign Date Time Temp Pulse Resp B/P (MAP) Pulse Ox O2 Delivery O2 Flow Rate FiO2 02/08/24 20:00 88 20 95 Room Air* 0 21 02/08/24 17:01 99.1 102/30 (54) 99.1 Total Intake and Output 02/07/24 02/07/24 02/08/24 15:00 23:00 07:00 Intake Total 1100 ml 1970 ml 2068 ml Output Total 900 ml 950 ml Balance 1100 ml 1070 ml 1118 ml medications Current Medications Medications Dose Ordered Sig/Nely Route Start Time Stop Time Status Last Admin Dose Admin Pantoprazole Sodium 40 mg DAILY IV 02/05/24 10:00 02/08/24 09:26 40 MG Dextrose 50 ml UD PRN IV 02/05/24 05:30 Ondansetron HCl 4 mg Q4HP PRN IV 02/05/24 05:30 02/06/24 17:06 4 MG Acetaminophen 650 mg Q6HP PRN PO 02/05/24 05:30 02/08/24 20:30 650 MG Sodium Chloride 1,000 ml @ 75 mls/hr [id number] IV 02/05/24 17:00 02/08/24 12:26 75 MLS/HR Iron Sucrose 110 ml @ 110 mls/hr DAILY@1200 IV 02/06/24 12:00 02/10/24 12:59 02/08/24 12:26 110 MLS/HR Ampicillin Sodium/ Sulbactam Sodium 3 gm/Sodium Chloride 100 ml @ 100 mls/hr Q6H IV 02/06/24 16:30 02/08/24 17:36 100 MLS/HR Diagnostic Test (Pha) 1 strip ACHS 02/08/24 11:30 02/08/24 17:36 1 STRIP Insulin Human Regular ACHS SC 02/08/24 11:30 02/08/24 17:37 3 UNITS Octreotide Acetate 100 mcg TID SUBCUT 02/08/24 14:00 02/08/24 14:15 100 MCG Examination General: Morbidly Obese, female lying bed with a rectal tube draining dark/tarry stool HEENT: PERRLA Pulm: Clear breath sounds bilaterally CVS: S1-S2 regular rate and rhythm, distant Abdomen tender diffusely, no flank pain Extremities Moving all extremities Macular and vesicular rash on bilateral buttocks and inner thigh, symmetrical, different stage of healing and also in her hands laboratory and microbiology Laboratory Tests 02/08/24 08:02 Test 02/08/24 08:02 Range/Units Serum Glucose 190 H 74-106 mg/dL Microbiology Date/Time Source Procedure Growth Status 02/06/24 16:44 Stool Stool Culture - Preliminary Resulted 02/06/24 16:44 Stool Shiga Toxin I & II - Final Resulted 02/06/24 16:30 Voided Urine Urine Culture - Final Complete Problem List/Assessment/Plan Problem List/Assessment/Plan (1) Unspecified kidney failure (2) Acute abdominal pain (3) Unspecified cirrhosis of liver (4) Calculus of gallbladder without cholecystitis without obstruction (5) Leukocytosis, unspecified (6) Gastrointestinal hemorrhage, unspecified (7) Liver cirrhosis (8) Lower abdominal pain, unspecified (9) Acute diarrhea (10) GIB (gastrointestinal bleeding) (11) Fentanyl use (12) HIV negative Nephrology following Plan/Recommendation Assessment plan Her rash in her thighs and her hands is noted ; rule out scabies or infectious etiology Recommend ID consult Stool for WBC, C diff, bacterial culture IV antibiotics IV fluid hydration Monitor labs; check ESR, anemia workup Supportive care for now Further recommendations pending results of the above Elective colonoscopy to be considered once medically stabilized Goal of care discussed for > 19 minutes case and plan discussed with Dr. Rosales Plan discussed with: Patient Dietary Evaluation Review Comments: 1) Advance pt diet when medically feasible to a CCHO 45g diet 2) Continue current plan of care Expected Outcomes/Goals: F/U in 3-5 days CARMEN AKERS RESIDENT Feb 08, 2024 23:04
[2024-02-09 06:06] LABS: RPR Non Reactive (Non Reactive)
[2024-02-09 08:00] VITALS: PULSE 85; RESP 20
[2024-02-09 08:44] VITALS: BP 126/57; PULSE 88; RESP 20; TEMP 97.8; O2SAT 99
--- NOTE | 2024-02-09 13:02 | DVHPN2 ---
Progress Note Date Seen: Feb 09, 2024 Resident Creating Document: CARMEN AKERS RESIDENT Medical Necessity Reason Pt with a Central, PICC or Fol: No Medical Necessity Reason Severe anemia. Rectal tube draining dark stool. Subjective Review of Systems Patient is sleeping at the time of assessment today. She still has the rectal tube draining the dark greenish mucus like stool. No clear red blood noted. The drainage is much reduced compared to yesterday. Objective vital signs Vital Sign Date Time Temp Pulse Resp B/P (MAP) Pulse Ox O2 Delivery O2 Flow Rate FiO2 02/09/24 08:44 97.8 88 20 126/57 (80) 99 97.8 02/09/24 08:00 Room Air* 0 21 Total Intake and Output 02/08/24 02/08/24 02/09/24 15:00 23:00 07:00 Intake Total 810 ml 2510 ml 0 ml Output Total 700 ml 1030 ml Balance 810 ml 1810 ml -1030 ml medications Current Medications Medications Dose Ordered Sig/Nely Route Start Time Stop Time Status Last Admin Dose Admin Pantoprazole Sodium 40 mg DAILY IV 02/05/24 10:00 02/09/24 10:21 40 MG Dextrose 50 ml UD PRN IV 02/05/24 05:30 Ondansetron HCl 4 mg Q4HP PRN IV 02/05/24 05:30 02/06/24 17:06 4 MG Acetaminophen 650 mg Q6HP PRN PO 02/05/24 05:30 02/08/24 20:30 650 MG Sodium Chloride 1,000 ml @ 75 mls/hr [id number] IV 02/05/24 17:00 02/09/24 06:30 75 MLS/HR Iron Sucrose 110 ml @ 110 mls/hr DAILY@1200 IV 02/06/24 12:00 02/10/24 12:59 02/08/24 12:26 110 MLS/HR Ampicillin Sodium/ Sulbactam Sodium 3 gm/Sodium Chloride 100 ml @ 100 mls/hr Q6H IV 02/06/24 16:30 02/09/24 10:21 100 MLS/HR Diagnostic Test (Pha) 1 strip ACHS 02/08/24 11:30 02/09/24 11:06 1 STRIP Insulin Human Regular ACHS SC 02/08/24 11:30 02/09/24 11:06 6 UNITS Octreotide Acetate 100 mcg TID SUBCUT 02/08/24 14:00 02/09/24 06:33 100 MCG Examination General: Morbidly Obese, female lying bed with a rectal tube draining dark greenish stool. Sleeping Resp: Clear breath sounds bilaterally Cardiology: S1-S2 regular rate and rhythm, distant Abdomen: tender diffusely, no flank pain Derm: Macular and vesicular rash on bilateral buttocks and inner thigh, symmetrical, different stage of healing; petechial on the hands-- improving laboratory and microbiology Laboratory Tests 02/08/24 08:02 Test 02/08/24 08:02 Range/Units Serum Glucose 190 H 74-106 mg/dL Microbiology Date/Time Source Procedure Growth Status 02/06/24 16:44 Stool Stool Culture - Final Complete 02/06/24 16:44 Stool Shiga Toxin I & II - Final Complete 02/06/24 16:30 Voided Urine Urine Culture - Final Complete Problem List/Assessment/Plan Problem List/Assessment/Plan GIB (gastrointestinal bleeding) Acute diarrhea Lower abdominal pain, unspecified Unspecified kidney failure Calculus of gallbladder without cholecystitis without obstruction Leukocytosis, unspecified Gastrointestinal hemorrhage, unspecified Fentanyl use HIV negative Nephrology following Iron studies iron: 17 TIBC: 206 Ferritin: 209.3 Plan/Recommendation Assessment plan Her rash in her thighs and her hands is noted; rule out scabies or infectious etiology Recommend ID consult --> pending Stool for WBC, C diff: pending bacterial culture--> Negative IV antibiotics IV fluid hydration Monitor labs; check ESR Supportive care for now Further recommendations pending results of the above Elective colonoscopy to be considered once medically stabilized Goal of care discussed for > 19 minutes case and plan discussed with Dr. Rosales Plan discussed with: Other Dietary Evaluation Review Comments: 1) Advance pt diet when medically feasible to a CCHO 45g diet 2) Continue current plan of care Expected Outcomes/Goals: F/U in 3-5 days CARMEN AKERS RESIDENT Feb 09, 2024 13:02
--- NOTE | 2024-02-09 14:13 | DVHPN2 ---
Progress Note Date Seen: Feb 09, 2024 Medical Necessity Reason Pt with a Central, PICC or Fol: No Subjective Patient reports: No new complaints (egarding the) Other Systems: Patient seen and examined by myself today in follow-up Objective vital signs Vital Sign Date Time Temp Pulse Resp B/P (MAP) Pulse Ox O2 Delivery O2 Flow Rate FiO2 02/09/24 08:44 97.8 88 20 126/57 (80) 99 97.8 02/09/24 08:00 Room Air* 0 21 Total Intake and Output 02/08/24 02/08/24 02/09/24 15:00 23:00 07:00 Intake Total 810 ml 2510 ml 0 ml Output Total 700 ml 1030 ml Balance 810 ml 1810 ml -1030 ml medications Current Medications Medications Dose Ordered Sig/Nely Route Start Time Stop Time Status Last Admin Dose Admin Pantoprazole Sodium 40 mg DAILY IV 02/05/24 10:00 02/09/24 10:21 40 MG Dextrose 50 ml UD PRN IV 02/05/24 05:30 Ondansetron HCl 4 mg Q4HP PRN IV 02/05/24 05:30 02/06/24 17:06 4 MG Acetaminophen 650 mg Q6HP PRN PO 02/05/24 05:30 02/08/24 20:30 650 MG Sodium Chloride 1,000 ml @ 75 mls/hr [id number] IV 02/05/24 17:00 02/09/24 06:30 75 MLS/HR Iron Sucrose 110 ml @ 110 mls/hr DAILY@1200 IV 02/06/24 12:00 02/10/24 12:59 02/08/24 12:26 110 MLS/HR Ampicillin Sodium/ Sulbactam Sodium 3 gm/Sodium Chloride 100 ml @ 100 mls/hr Q6H IV 02/06/24 16:30 02/09/24 10:21 100 MLS/HR Diagnostic Test (Pha) 1 strip ACHS 02/08/24 11:30 02/09/24 11:06 1 STRIP Insulin Human Regular ACHS SC 02/08/24 11:30 02/09/24 11:06 6 UNITS Octreotide Acetate 100 mcg TID SUBCUT 02/08/24 14:00 02/09/24 06:33 100 MCG Examination: LUNGS:Normal, CVS:Normal, MSK:Normal laboratory and microbiology Laboratory Tests 02/08/24 08:02 Test 02/08/24 08:02 Range/Units Serum Glucose 190 H 74-106 mg/dL Microbiology Date/Time Source Procedure Growth Status 02/06/24 16:44 Stool Stool Culture - Final Complete 02/06/24 16:44 Stool Shiga Toxin I & II - Final Complete 02/06/24 16:30 Voided Urine Urine Culture - Final Complete Problem List/Assessment/Plan Problem List/Assessment/Plan Acute kidney injury superimposed Chronic Kidney Disease stage III secondary hemodynamic mediated, FeNa < 1% Hepatorenal syndrome Diabetes mellitus uncontrolled Hyperglycemia Dehydration Hyponatremia dilutional, improving Hypokalemia Hypophosphatemia Liver cirrhosis Pancreatitis Colitis Urinary tract infection Recommendations Kidney function continues to improve Increased urine output Strict I&Os Insulin sliding scale K-Phos IV piggyback IV antibiotics kidney ultrasound reported within normal limits I will sign off this case please refer to my office two weeks after discharge for Chronic Kidney Disease follow-up Thank you for the consult Plan discussed with: Patient Dietary Evaluation Review Comments: 1) Advance pt diet when medically feasible to a CCHO 45g diet 2) Continue current plan of care Expected Outcomes/Goals: F/U in 3-5 days VICTORINO CARREON MD Feb 09, 2024 14:13
[2024-02-09] MEDS ORDERED: SODIUM FERR GLUC 62.5MG/5ML 110 ML IV SCH (14:15)
[2024-02-09 15:07] LABS: Anti-Nuclear Antibody Direct Negative (Negative)
[2024-02-09] MEDS: SODIUM FERR GLUC 62.5MG/5ML 110 ML IV SCH (15:59)
[2024-02-09 17:00] VITALS: BP 119/63; PULSE 92; RESP 18; TEMP 99.6; O2SAT 91
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
[2024-02-09 20:00] VITALS: PULSE 94; RESP 18; O2SAT 96
[2024-02-09 21:00] VITALS: BP 133/48; PULSE 94; RESP 18; TEMP 98.1; O2SAT 96
[2024-02-09] MEDS: INSULIN LANTUS (GLARGINE) 1 /0.01ml (100units/ml) SC SCH (21:49)
[2024-02-10] VITALS (9 sets, daily range): BP systolic 112–128; BP diastolic 47–64; PULSE 62–107; RESP 16–19; TEMP 97.7–98; O2SAT 92–98
[2024-02-10 08:29] LABS: Chloride 104 mmol/L (98-107); Potassium 3.7 mmol/L (3.5-5.1); Sodium 135 mmol/L (136-145)
[2024-02-10 08:30] LABS: Anion Gap 6 (5-15); Calcium 7.5 mg/dL (8.7-10.4); Carbon Dioxide 25 mmol/L (20-31)
[2024-02-10 08:35] LABS: BUN/Creatinine Ratio 8.6 (10.0-20.0); Blood Urea Nitrogen 12 mg/dL (9-23); Glucose 198 mg/dL (74-106)
[2024-02-10 08:40] LABS: Hematocrit 29.4 % (36.0-46.0); Hemoglobin 9.6 g/dL (12.2-16.2); Mean Corpuscular Hemoglobin 25.5 pg (28.0-32.0); Mean Corpuscular Hgb Conc. 32.6 g/dL (32.0-36.0); Mean Corpuscular Volume 78.2 fL (80.0-100.0); Platelet Count (auto) 225 10^3/uL (140-450); Red Blood Cells 3.76 10^6/uL (4.0-5.20); Red Cell Distribution Width 14.4 % (11.8-14.3); White Blood Cell 7.4 10^3/uL (4.4-10.8)
[2024-02-10 08:47] LABS: Basophils % (manual) 0 (0.0-2.0); Blast Cells 0; Eosinophils % (manual) 0 (0-7); Myelocytes % 0; Promyelocytes % 0; Reactive Lymphocytes 0
[2024-02-10 12:22] LABS: Band Neutrophils % (manual) 4; Lymphocytes % (manual) 12 (10.0-50.0); Metamyelocytes % 2; Monocytes % (manual) 8 (0-12); Platelet Estimate Adequate
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
[2024-02-11] VITALS (8 sets, daily range): BP systolic 103–131; BP diastolic 37–62; PULSE 81–111; RESP 16–20; TEMP 98.2–99; O2SAT 94–96
[2024-02-11 13:07] LABS: Chlamydia Trachomatis, NAA Negative (Negative); Neisseria gonorrhoeae, NAA Negative (Negative)
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
[2024-02-12] VITALS (8 sets, daily range): BP systolic 104–142; BP diastolic 39–61; PULSE 86–97; RESP 18–20; TEMP 97.5–98.6; O2SAT 92–99
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
[2024-02-12] MEDS: FLORASTOR (S. BOULARDII) 250 MG CAP PO SCH (15:22)
[2024-02-12] MEDS: ONDANSETRON ODT 4 MG TAB PO SCH (18:24)
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
--- NOTE | 2024-02-12 19:56 | DVHPN2 ---
Progress Note - Dictate Date Seen: Feb 12, 2024 Medical Necessity Reason Pt with a Central, PICC or Fol: No Subjective No new complaints Patient tolerating diet Diarrhea is improved and rectal tube was did been discontinued Patient underwent wound care consultation and has had barrier ointment applied Urine culture and stool test negative so far UA suggestive of UTI vital signs Vital Sign Date Time Temp Pulse Resp B/P (MAP) Pulse Ox O2 Delivery O2 Flow Rate FiO2 02/12/24 17:20 98.6 93 20 119/46 (70) 97 98.6 02/12/24 08:00 Room Air* 0 21 Total Intake and Output 02/11/24 02/11/24 02/12/24 15:00 23:00 07:00 Intake Total 260 ml 1620 ml 800 ml Output Total 700 ml 550 ml Balance 260 ml 920 ml 250 ml medications Current Medications Medications Dose Ordered Sig/Nely Route Start Time Stop Time Status Last Admin Dose Admin Pantoprazole Sodium 40 mg DAILY IV 02/05/24 10:00 02/12/24 09:44 40 MG Dextrose 50 ml UD PRN IV 02/05/24 05:30 Ondansetron HCl 4 mg Q4HP PRN IV 02/05/24 05:30 02/06/24 17:06 4 MG Acetaminophen 650 mg Q6HP PRN PO 02/05/24 05:30 02/08/24 20:30 650 MG Sodium Chloride 1,000 ml @ 75 mls/hr [id number] IV 02/05/24 17:00 02/12/24 09:44 75 MLS/HR Diagnostic Test (Pha) 1 strip ACHS 02/08/24 11:30 02/12/24 18:23 1 STRIP Insulin Human Regular ACHS SC 02/08/24 11:30 02/12/24 18:24 6 UNITS Octreotide Acetate 100 mcg TID SUBCUT 02/08/24 14:00 02/12/24 15:00 100 MCG Insulin Glargine 10 units HS SC 02/09/24 22:00 02/11/24 22:53 10 UNITS Ondansetron HCl 4 mg Q6HP PO 02/12/24 18:00 02/13/24 20:00 02/12/24 18:24 4 MG Saccharomyces Boulardii 250 mg DAILY PO 02/12/24 16:00 02/16/24 20:00 02/12/24 15:22 250 MG objective General: Morbidly Obese, female lying bed Resp: Clear breath sounds bilaterally Cardiology: S1-S2 regular rate and rhythm, distant Abdomen: soft obese NT ND Derm: Macular and vesicular rash on bilateral buttocks and inner thigh, symmetrical, different stage of healing; petechial on the hands-- improving Extremities: Improving petechiae rashes; scabs on her medial thighs bilateral laboratory and microbiology Laboratory Tests 02/10/24 07:45 Test 02/10/24 07:45 Range/Units Serum Glucose 198 H 74-106 mg/dL Problems(with codes): (1) UTI (urinary tract infection) (2) Abdominal pain (3) Acute diarrhea (4) Acute abdominal pain Prognosis Plan Continue supportive care IV fluid hydration IV Abx Arrange physical therapy Better glycemic control Once medically stabilized consider outpatient elective panendoscopy Appreciate ID consult and wound care consult Dietary Evaluation Review Comments: 1) Advance pt diet when medically feasible to a CCHO 45g diet 2) Continue current plan of care Expected Outcomes/Goals: F/U in 3-5 days Plan discussed with: Patient PAWAN LYNN MD Feb 12, 2024 19:56
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
[2024-02-13] VITALS (7 sets, daily range): BP systolic 111–126; BP diastolic 48–74; PULSE 72–96; RESP 17–19; TEMP 97.7–99.6; O2SAT 94–97
[2024-02-13 05:18] LABS: Mean Corpuscular Volume 79.7 fL (80.0-100.0)
[2024-02-13 05:22] LABS: Hematocrit 25.8 % (36.0-46.0); Hemoglobin 8.4 g/dL (12.2-16.2); Mean Corpuscular Hemoglobin 25.8 pg (28.0-32.0); Mean Corpuscular Hgb Conc. 32.4 g/dL (32.0-36.0); Platelet Count (auto) 169 10^3/uL (140-450); Red Blood Cells 3.24 10^6/uL (4.0-5.20); Red Cell Distribution Width 14.7 % (11.8-14.3); White Blood Cell 8.8 10^3/uL (4.4-10.8)
[2024-02-13 05:39] LABS: Basophils % (manual) 0 (0.0-2.0); Blast Cells 0; Metamyelocytes % 0; Myelocytes % 0; Promyelocytes % 0
[2024-02-13 05:41] LABS: Alanine Aminotransferase 17 U/L (7-40); Albumin 2.4 g/dL (3.2-4.8); Alkaline Phosphatase 84 U/L (46-116); Anion Gap 5 (5-15); Aspartate Aminotransferase 37 U/L (13-40); Bilirubin, Total 0.4 mg/dL (0.2-1.0); Blood Urea Nitrogen 9 mg/dL (9-23); Calcium 7.3 mg/dL (8.7-10.4); Carbon Dioxide 24 mmol/L (20-31); Chloride 105 mmol/L (98-107); Glucose 193 mg/dL (74-106); Potassium 3.7 mmol/L (3.5-5.1); Sodium 134 mmol/L (136-145)
[2024-02-13 06:00] LABS: Total Protein 5.5 g/dL (5.7-8.2)
[2024-02-13] MEDS: metroNIDAZOLE 500MG/100ML 100 ML IV SCH (06:00)
[2024-02-13 08:06] LABS: Band Neutrophils % (manual) 3; Eosinophils % (manual) 1 (0-7); Lymphocytes % (manual) 43 (10.0-50.0); Monocytes % (manual) 8 (0-12); Reactive Lymphocytes 4
[2024-02-13 08:08] LABS: Anisocytosis Slight; Platelet Estimate Adequate
[2024-02-13] MEDS: PSYLLIUM PWD 5.8GM PKG PO SCH (10:00)
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
[2024-02-13] MEDS ORDERED: metroNIDAZOLE 500 MG TAB PO SCH (22:00)
[2024-02-13] MEDS: INSULIN LANTUS (GLARGINE) 1 /0.01ml (100units/ml) SC SCH (22:28)
[2024-02-14 01:00] VITALS: BP 126/62; PULSE 90; RESP 18; TEMP 99.2; O2SAT 92
[2024-02-14 05:00] VITALS: BP 114/47; PULSE 91; RESP 18; TEMP 98.1; O2SAT 90
[2024-02-14 05:05] LABS: Hematocrit 25.5 % (36.0-46.0); Hemoglobin 8.3 g/dL (12.2-16.2); Mean Corpuscular Hemoglobin 25.8 pg (28.0-32.0); Mean Corpuscular Hgb Conc. 32.4 g/dL (32.0-36.0); Mean Corpuscular Volume 79.6 fL (80.0-100.0); Platelet Count (auto) 155 10^3/uL (140-450); White Blood Cell 7.4 10^3/uL (4.4-10.8)
[2024-02-14 05:17] LABS: Chloride 105 mmol/L (98-107); Sodium 135 mmol/L (136-145)
[2024-02-14 05:18] LABS: Calcium 7.5 mg/dL (8.7-10.4)
[2024-02-14 05:19] LABS: Band Neutrophils % (manual) 0; Basophils % (manual) 0 (0.0-2.0); Metamyelocytes % 0; Myelocytes % 0; Promyelocytes % 0
[2024-02-14 05:23] LABS: BUN/Creatinine Ratio 6.5 (10.0-20.0); Blood Urea Nitrogen 9 mg/dL (9-23); Glucose 166 mg/dL (74-106)
[2024-02-14 06:07] LABS: Anion Gap 5 (5-15); Carbon Dioxide 25 mmol/L (20-31)
[2024-02-14 08:00] VITALS: PULSE 84; PULSE 97; RESP 18
[2024-02-14 08:00] LABS: Blast Cells 2; Eosinophils % (manual) 2 (0-7); Lymphocytes % (manual) 39 (10.0-50.0); Monocytes % (manual) 3 (0-12); Platelet Estimate Adequate; Reactive Lymphocytes 4
[2024-02-14 09:00] VITALS: BP 109/48; PULSE 88; RESP 20; TEMP 97.5; O2SAT 94
[2024-02-14] MEDS: PANTOPRAZOLE 40 MG TAB PO SCH (09:28)
[2024-02-14 12:06] LABS: t-Transglutaminase (tTG) IgA <2 U/mL (0-3); t-Transglutaminase (tTG) IgG <2 U/mL (0-5)
[2024-02-14] MEDS ORDERED: PANT40T PO (12:32)
[2024-02-14] MEDS ORDERED: SACC250C PO (12:32)
[2024-02-14] MEDS ORDERED: PSYL58.632 PO (12:32)
[2024-02-14] MEDS ORDERED: METF-929 PO (12:32)
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
== END 2024-02-14 15:00 | disposition home or self-care (01) | DRG 282 ==
LOC: ER 21:09 → EDBD 21:09 → TELE 02-05 06:16 → TELE-WESTW 02-05 06:18
PROVIDERS: ADMIT Student in an Organized Health Care Education/Training Program; ATTEND Student in an Organized Health Care Education/Training Program
DX: K85.90 Acute pancreatitis without necrosis or infection, unspecified (principal); N17.0 Acute kidney failure with tubular necrosis; G92.8 Other toxic encephalopathy; A04.9 Bacterial intestinal infection, unspecified; E87.1 Hypo-osmolality and hyponatremia; E11.22 Type 2 diabetes mellitus with diabetic chronic kidney disease; D50.9 Iron deficiency anemia, unspecified; K74.60 Unspecified cirrhosis of liver; E86.0 Dehydration; E11.65 Type 2 diabetes mellitus with hyperglycemia; E87.6 Hypokalemia; E21.3 Hyperparathyroidism, unspecified; N18.9 Chronic kidney disease, unspecified; L73.2 Hidradenitis suppurativa; N13.6 Pyonephrosis; E66.01 Morbid (severe) obesity due to excess calories; F39 Unspecified mood [affective] disorder; Z79.4 Long term (current) use of insulin; Z59.00 Homelessness unspecified; Z68.42 Body mass index [BMI] 45.0-49.9, adult
CPT/HCPCS: 36415; 36600; 74176; 76775; 80048; 80053; 80307; 81001; 82270; 82306; 82570; 82728; 82805; 82962; 83036; 83540; 83550; 83605; 83690; 83735; 83880; 83970; 84100; 84156; 84300; 84702; 85007; 85025; 85027; 85610; 85652; 85730; 86038; 86141; 86592; 86703; 86803; 86850; 86900; 86901; 87045; 87086; 87340; 87427; 87493; 93005; 99291; G0378; J1756; J1815; J2405; J2470; J3480; J3490; J7042; Q0162